=== PATIENT | female | born 1985 | race Caucasian/White ===

== ENCOUNTER → 2019-04-02 | Outpatient (CLI) | payer SELFPAY ==
[2019-04-02 08:58] LABS: Basophils # (A) 0.1 k/uL (0-0.2); Basophils % (A) 1 %; Eosinophils # (A) 0.3 k/uL (0-0.7); Eosinophils % (A) 2 %; HCT 41.5 % (34.0-46.0); HGB 14.1 gm/dL (11.4-16.0); Lymphocytes # (A) 2.9 k/uL (1.0-4.8); Lymphocytes % (A) 22 %; MCH 30.6 pg (25.0-35.0); MCHC 34.1 g/dL (31.0-37.0); MCV 89.9 fL (80.0-100.0); Mean Platelet Volume 5.7; Monocytes # (A) 0.6 k/uL (0-1.0); Monocytes % (A) 4 %; Neutrophils # (A) 9.4 k/uL (1.3-7.7); Neutrophils % (A) 70 %; Platelet Count 482 k/uL (150-450); RBC 4.61 m/uL (3.80-5.40); RDW 13.1 % (11.5-15.5); WBC 13.4 k/uL (3.8-10.6)
[2019-04-02 15:57] LABS: ALT 19 U/L (8-44); AST 18 U/L (13-35); African American GFR (CKD) 136.9 (60.0-200.0); Albumin/Globulin Ratio 2.32 (1.60-3.17); Alkaline Phosphatase 68 U/L (41-126); BUN/Creat Ratio 8.33 Ratio (12.00-20.00); Bilirubin, Conjugated <0.20 mg/dL (0.20-0.40); Calcium 9.3 mg/dL (8.7-10.3); Carbon Dioxide 20.6 mmol/L (21.6-31.8); Chloride 106 mmol/L (96-109); Chol/HDL Ratio 4.06; Cholesterol 199 mg/dL (0-200); Globulin 1.9 g/dL (1.6-3.3); Glucose 85 mg/dL (70-110); Rheumatoid Factor, Qnt 9 IU/mL (0-15); Sodium 138 mmol/L (135-145); Total Bilirubin 0.2 mg/dL (0.3-1.2); Total Protein 6.3 g/dL (6.2-8.2)
== END | disposition home or self-care (01) ==
LOC: LABWHC1 07:43
PROVIDERS: ATTEND Family Medicine
DX: Z00.00 Encounter for general adult medical examination without abnormal findings (principal); M25.50 Pain in unspecified joint; R20.2 Paresthesia of skin; R10.9 Unspecified abdominal pain
CPT/HCPCS: 36415; 80053; 80061; 82248; 84439; 84443; 85025; 86038; 86431

== ENCOUNTER 2019-07-18 14:56 | Emergency (ER) | payer OTHER ==
[2019-07-18 15:02] VITALS: TEMP 98.1
[2019-07-18] MEDS ORDERED: SODIUM CHLORIDE 0.9% 1,000 ML IV STA (15:14)
[2019-07-18] MEDS ORDERED: ACETAMINOPHEN TAB 500 MG TAB PO STA (15:14)
[2019-07-18] MEDS ORDERED: SODIUM CHLORIDE 0.9% 500 ML 500 ML IV STA (15:14)
--- NOTE | 2019-07-18 15:18 | ED ---
General Adult HPI - General Chief complaint: Fever Stated complaint: flu Time Seen by Provider: 07/18/19 15:05 Source: patient, RN notes reviewed Mode of arrival: ambulatory Limitations: no limitations - History of Present Illness Initial comments: 33-year-old to female currently 29 weeks presents to the emergency department for a chief complaint of cough and congestion. Patient states she has had cough for the past couple days. States she has also had congestion. States yesterday she started to have chills and body aches. States she felt like she had a fever. Patient states that she figured she should be evaluated for this. Patient states her friend was diagnosed with influenza a earlier this week. Patient just found out about this 4 weeks ago but did have an ultrasound confirming a viable intrauterine . She is denying any abdominal pain and pelvic pain or pressure, vaginal bleeding, or any complains related to this . Patient sees her [facility] in 3 days.Patient has no other complaints at this time including shortness of breath, chest pain, abdominal pain, nausea or vomiting, headache, or visual changes. - Related Data Previous Rx's Medication Instructions Recorded Acetaminophen with Codeine 1 tab PO Q4H PRN #15 tab 07/01/15 [Tylenol w/codeine #3] Ciprofloxacin HCl [Cipro] 500 mg PO Q12HR #20 tablet 07/01/15 Lidocaine Viscous [Xylocaine 5 ml PO TID PRN #100 ml 07/01/15 Viscous 2%] Acetaminophen [Tylenol] 500 mg PO Q4-6H PRN #20 tab 07/18/19 Oseltamivir [Tamiflu] 75 mg PO Q12HR #10 cap 07/18/19 Allergies Allergy/AdvReac Type Severity Reaction Status Date / Time cefaclor [From Ceclor] Allergy Unknown Verified 07/18/19 15:02 clindamycin Allergy Unknown Verified 07/18/19 15:02 erythromycin base Allergy Unknown Verified 07/18/19 15:02 penicillinase Allergy Unknown Verified 07/18/19 15:02 Penicillins Allergy Unknown Verified 07/18/19 15:02 Sulfa (Sulfonamide Allergy Unknown Verified 07/18/19 15:02 Antibiotics) Review of Systems ROS Statement: Those systems with pertinent positive or pertinent negative responses have been documented in the HPI. ROS Other: All systems not noted in ROS Statement are negative. Past Medical History Past Medical History: Fibromyalgia History of Any Multi-Drug Resistant Organisms: None Reported Past Surgical History: Tonsillectomy Additional Past Surgical History / Comment(s): D&C Past Psychological History: Anxiety, Depression, Panic Disorder Smoking Status: Current every day smoker Past Alcohol Use History: None Reported Past Drug Use History: None Reported General Exam Limitations: no limitations General appearance: alert, in no apparent distress Head exam: Present: atraumatic, normocephalic, normal inspection Eye exam: Present: normal appearance, PERRL, EOMI. Absent: scleral icterus, conjunctival injection, periorbital swelling ENT exam: Present: normal exam, mucous membranes moist Neck exam: Present: normal inspection, full ROM. Absent: tenderness, meningis mus, lymphadenopathy Respiratory exam: Present: normal lung sounds bilaterally. Absent: respiratory distress, wheezes, rales, rhonchi, stridor Cardiovascular Exam: Present: regular rate, normal rhythm, normal heart sounds. Absent: systolic murmur, diastolic murmur, rubs, gallop, clicks GI/Abdominal exam: Present: soft, normal bowel sounds. Absent: distended, tenderness, guarding, rebound, rigid Neurological exam: Present: alert Course Vital Signs 07/18/19 07/18/19 14:59 15:52 Temperature 98.1 F Pulse Rate 122 H Respiratory 18 20 Rate Blood Pressure 143/82 O2 Sat by Pulse 98 Oximetry Medical Decision Making - Medical Decision Making She initially presents with a heart rate of 122. Patient is 29 weeks . Patient has had fevers and cough for the past day. I did do some lab work on patient she has mild acidosis likely reactive. CMP generally unremarkable. There is mild evidence of dehydration she was given fluids. Influenza B was detected. Chest x-ray shows a correlate for bronchitis. heart tones performed by L&D nurse were 150 and normal. I discussed findings with patient. Discussed and explained influenza. Patient does agree to take Tamiflu as it is recommended by CDC. I did repeat her heart rate and it is around 110-112 while I am in the room. Heart rate is likely physiologic from as well as from influenza and possible fever.I discussed this case with attending Dr. Kirkpatrick who agrees with this assessment and treatment plan. - Lab Data Result diagrams: 07/18/19 15:37 07/18/19 15:37 Lab Results 07/18/19 07/18/1907/18/20 Range/Units 15:37 15:37 15:39 WBC 12.6 H (3.8-10.6) k/uL RBC 3.87 (3.80-5.40) m/uL Hgb 11.9 (11.4-16.0) gm/dL Hct 34.8 (34.0-46.0) % MCV 89.8 (80.0-100.0) fL MCH 30.7 (25.0-35.0) pg MCHC 34.2 (31.0-37.0) g/dL RDW 13.0 (11.5-15.5) % Plt Count 534 H (150-450) k/uL Neutrophils % 72 % Lymphocytes % 13 % Monocytes % 9 % Eosinophils % 1 % Basophils % 3 % Neutrophils # 9.1 H (1.3-7.7) k/uL Lymphocytes # 1.6 (1.0-4.8) k/uL Monocytes # 1.1 H (0-1.0) k/uL Eosinophils # 0.1 (0-0.7) k/uL Basophils # 0.3 H (0-0.2) k/uL Sodium 134 L (137-145) mmol/L Potassium 4.2 (3.5-5.1) mmol/L Chloride 108 H (98-107) mmol/L Carbon Dioxide 19 L (22-30) mmol/L Anion Gap 7 mmol/L BUN 7 (7-17) mg/dL Creatinine 0.59 (0.52-1.04) mg/dL Est GFR (CKD-EPI)AfAm >90 (>60 ml/min/1.73 sqM) Est GFR (CKD-EPI)NonAf >90 (>60 ml/min/1.73 sqM) Glucose 90 (74-99) mg/dL Calcium 9.0 (8.4-10.2) mg/dL Total Bilirubin 0.2 (0.2-1.3) mg/dL AST 22 (14-36) U/L ALT 13 (4-34) U/L Alkaline Phosphatase 116 (38-126) U/L Total Protein 6.4 (6.3-8.2) g/dL Albumin 3.6 (3.5-5.0) g/dL Urine Color Yellow Urine Appearance Cloudy H (Clear) Urine pH 6.5 (5.0-8.0) Ur Specific [place] 1.017 (1.001-1.035) Urine Protein Trace H (Negative) Urine Glucose (UA) Negative (Negative) Urine Ketones Negative (Negative) Urine Blood Negative (Negative) Urine Nitrite Negative (Negative) Urine Bilirubin Negative (Negative) Urine Urobilinogen <2.0 (<2.0) mg/dL Ur Leukocyte Esterase Negative (Negative) Urine RBC <1 (0-5) /hpf Urine WBC 2 (0-5) /hpf Ur Squamous Epith Cells 2 (0-4) /hpf Urine Bacteria Rare H (None) /hpf Hyaline Casts 1 (0-2) /lpf Urine Mucus Rare H (None) /hpf Urine Yeast (Budding) Occasional H (None) /hpf Influenza Type A RNA (Not Detectd) Influenza Type B (PCR) (Not Detectd) 07/18/19 Range/Units 15:47 WBC (3.8-10.6) k/uL RBC (3.80-5.40) m/uL Hgb (11.4-16.0) gm/dL Hct (34.0-46.0) % MCV (80.0-100.0) fL MCH (25.0-35.0) pg MCHC (31.0-37.0) g/dL RDW (11.5-15.5) % Plt Count (150-450) k/uL Neutrophils % % Lymphocytes % % Monocytes % % Eosinophils % % Basophils % % Neutrophils # (1.3-7.7) k/uL Lymphocytes # (1.0-4.8) k/uL Monocytes # (0-1.0) k/uL Eosinophils # (0-0.7) k/uL Basophils # (0-0.2) k/uL Sodium (137-145) mmol/L Potassium (3.5-5.1) mmol/L Chloride (98-107) mmol/L Carbon Dioxide (22-30) mmol/L Anion Gap mmol/L BUN (7-17) mg/dL Creatinine (0.52-1.04) mg/dL Est GFR (CKD-EPI)AfAm (>60 ml/min/1.73 sqM) Est GFR (CKD-EPI)NonAf (>60 ml/min/1.73 sqM) Glucose (74-99) mg/dL Calcium (8.4-10.2) mg/dL Total Bilirubin (0.2-1.3) mg/dL AST (14-36) U/L ALT (4-34) U/L Alkaline Phosphatase (38-126) U/L Total Protein (6.3-8.2) g/dL Albumin (3.5-5.0) g/dL Urine Color Urine Appearance (Clear) Urine pH (5.0-8.0) Ur Specific [place] (1.001-1.035) Urine Protein (Negative) Urine Glucose (UA) (Negative) Urine Ketones (Negative) Urine Blood (Negative) Urine Nitrite (Negative) Urine Bilirubin (Negative) Urine Urobilinogen (<2.0) mg/dL Ur Leukocyte Esterase (Negative) Urine RBC (0-5) /hpf Urine WBC (0-5) /hpf Ur Squamous Epith Cells (0-4) /hpf Urine Bacteria (None) /hpf Hyaline Casts (0-2) /lpf Urine Mucus (None) /hpf Urine Yeast (Budding) (None) /hpf Influenza Type A RNA Not Detected (Not Detectd) Influenza Type B (PCR) Detected H (Not Detectd) Disposition Clinical Impression: Influenza B Disposition: HOME SELF-CARE Condition: Good Instructions (If sedation given, give patient instructions): Influenza (ED) Additional Instructions: Please take Tylenol as directed. Take Tamiflu as directed. Start this as soon as possible. Follow up with primary care and OB in 1-2 days. Drink any fluids. Return to the emergency department if you have any worsening symptoms. Prescriptions: Oseltamivir [Tamiflu] 75 mg PO Q12HR #10 cap Acetaminophen [Tylenol] 500 mg PO Q4-6H PRN #20 tab PRN Reason: Pain Is patient prescribed a controlled substance at d/c from ED?: No Referrals: Red Rueda MD [Primary Care Provider] - 1-2 days Time of Disposition: 16:50
[2019-07-18 15:52] VITALS: RESP 20
--- NOTE | 2019-07-18 15:53 | XR ---
EXAMINATION TYPE: XR chest 2V DATE OF EXAM: 07/18/2019 COMPARISON: Prior chest x-ray 10/25/2010 HISTORY: Cough TECHNIQUE: Frontal and lateral views of the chest are obtained. FINDINGS: There is no focal air space opacity, pleural effusion, or pneumothorax seen. The cardiac silhouette size is within normal limits. The osseous structures are intact. There is bronchial wall thickening. IMPRESSION: Correlate for bronchitis.
[2019-07-18 16:11] LABS: Appearance,Urine Cloudy (Clear); Bacteria,Urine Rare /hpf; Bilirubin,Urine Negative (Negative); Blood,Urine Negative (Negative); Budding Yeast,Urine Occasional /hpf; Color,Urine Yellow; Glucose,Urine (UA) Negative (Negative); Hyaline Casts,Urine 1 /lpf (0-2); Ketones,Urine Negative (Negative); Leukocyte Esterase,Urine Negative (Negative); Mucus,Urine Rare /hpf; Nitrite,Urine Negative (Negative); PH, Urine 6.5 (5.0-8.0); Protein,Urine Trace (Negative); RBC,Urine <1 /hpf (0-5); Specific Gravity,Urine 1.017 (1.001-1.035); Squamous Epithelial Cell,Urine 2 /hpf (0-4); Urobilinogen,Urine <2.0 mg/dL (<2.0); WBC,Urine 2 /hpf (0-5)
[2019-07-18 16:14] LABS: Basophils # (A) 0.3 k/uL (0-0.2); Basophils % (A) 3 %; Eosinophils # (A) 0.1 k/uL (0-0.7); Eosinophils % (A) 1 %; HCT 34.8 % (34.0-46.0); HGB 11.9 gm/dL (11.4-16.0); Lymphocytes # (A) 1.6 k/uL (1.0-4.8); Lymphocytes % (A) 13 %; MCH 30.7 pg (25.0-35.0); MCHC 34.2 g/dL (31.0-37.0); MCV 89.8 fL (80.0-100.0); Mean Platelet Volume 7.5; Monocytes # (A) 1.1 k/uL (0-1.0); Monocytes % (A) 9 %; Neutrophils # (A) 9.1 k/uL (1.3-7.7); Neutrophils % (A) 72 %; Platelet Count 534 k/uL (150-450); RBC 3.87 m/uL (3.80-5.40); WBC 12.6 k/uL (3.8-10.6)
[2019-07-18 16:20] LABS: ALT 13 U/L (4-34); AST 22 U/L (14-36); African American GFR (CKD) >90 (>60 ml/min/1.73 sqM); Albumin 3.6 g/dL (3.5-5.0); Alkaline Phosphatase 116 U/L (38-126); Anion Gap 7 mmol/L; Blood Urea Nitrogen 7 mg/dL (7-17); Carbon Dioxide 19 mmol/L (22-30); Chloride 108 mmol/L (98-107); Glucose 90 mg/dL (74-99); Non-African American GFR(CKD) >90 (>60 ml/min/1.73 sqM); Potassium 4.2 mmol/L (3.5-5.1); Sodium 134 mmol/L (137-145); Total Bilirubin 0.2 mg/dL (0.2-1.3); Total Protein 6.4 g/dL (6.3-8.2)
[2019-07-18 17:19] VITALS: BP 137/87; PULSE 96
== END 2019-07-18 17:18 | disposition home or self-care (01) ==
LOC: EC 14:56
DX: O99.513 Diseases of the respiratory system complicating pregnancy, third trimester (principal); J10.1 Influenza due to other identified influenza virus with other respiratory manifestations; O99.89 Other specified diseases and conditions complicating pregnancy, childbirth and the puerperium; E87.2 Acidosis; E86.0 Dehydration; O99.333 Smoking (tobacco) complicating pregnancy, third trimester; Z3A.29 29 weeks gestation of pregnancy; F17.200 Nicotine dependence, unspecified, uncomplicated; Z88.0 Allergy status to penicillin; Z88.2 Allergy status to sulfonamides; Z88.1 Allergy status to other antibiotic agents
CPT/HCPCS: 36415; 71046; 80053; 81001; 85025; 87502; 96360; 99284

== ENCOUNTER 2019-08-01 21:00 | Emergency (ER) | payer OTHER ==
[2019-08-01 21:15] VITALS: BP 141/99; TEMP 98.4
[2019-08-01] MEDS ORDERED: AZITHROMYCIN 500 MG TAB PO STA (21:49)
--- NOTE | 2019-08-01 21:49 | ED ---
ENT HPI - General Chief complaint: ENT Stated complaint: Rt Side facial pain, dental pain Time Seen by Provider: 08/01/19 21:16 Source: patient Mode of arrival: ambulatory Limitations: no limitations - History of Present Illness Initial comments: Patient is a 33-year-old female presenting to emergency Department with complaints of right sided dental pain as well as right ear pain that started increasing today. Patient is 32 weeks . Patient states she does have a fracture of her right upper wisdom tooth that happened 2 weeks ago. She has not yet followed up with her dentist. Patient states for the past few days she has been noticing increase in pressure over right ear as well as into her right jaw. Patient states today the pain is typically worse coming from her right upper teeth. She feels like she may have an abscess starting. Patient has been taking Claritin for her ear pressure as well as Tylenol for the pain. She states she does feel like the Tylenol is helping but can't tell when it wears off. Patient denies fever, chills, nausea, vomiting, abdominal pain. She has no other complaints at this time. - Related Data Previous Rx's Medication Instructions Recorded Acetaminophen with Codeine 1 tab PO Q4H PRN #15 tab 07/01/15 [Tylenol w/codeine #3] Ciprofloxacin HCl [Cipro] 500 mg PO Q12HR #20 tablet 07/01/15 Lidocaine Viscous [Xylocaine 5 ml PO TID PRN #100 ml 07/01/15 Viscous 2%] Acetaminophen [Tylenol] 500 mg PO Q4-6H PRN #20 tab 07/18/19 Oseltamivir [Tamiflu] 75 mg PO Q12HR #10 cap 07/18/19 Azithromycin 250 mg PO DAILY 4 Days #4 tab 08/01/19 Allergies Allergy/AdvReac Type Severity Reaction Status Date / Time cefaclor [From Ceclor] Allergy Unknown Verified 08/01/19 21:15 clindamycin Allergy Unknown Verified 08/01/19 21:15 erythromycin base Allergy Unknown Verified 08/01/19 21:15 penicillinase Allergy Unknown Verified 08/01/19 21:15 Penicillins Allergy Unknown Verified 08/01/19 21:15 Sulfa (Sulfonamide Allergy Unknown Verified 08/01/19 21:15 Antibiotics) Review of Systems ROS Statement: Those systems with pertinent positive or pertinent negative responses have been documented in the HPI. ROS Other: All systems not noted in ROS Statement are negative. Past Medical History Past Medical History: Fibromyalgia History of Any Multi-Drug Resistant Organisms: None Reported Past Surgical History: Tonsillectomy Additional Past Surgical History / Comment(s): D&C Past Psychological History: Anxiety, Depression, Panic Disorder Smoking Status: Current every day smoker Past Alcohol Use History: None Reported Past Drug Use History: None Reported General Exam - General Exam Comments Initial Comments: GENERAL: Well-appearing, well-nourished and in no acute distress. HEAD: Atraumatic, normocephalic. EYES: Pupils equal round and reactive to light, extraocular movements intact, sclera anicteric, conjunctiva are normal. ENT: TMs normal, nares patent, oropharynx clear without exudates. Moist mucous membranes. Patient has dental fracture of the right upper side, very mild erythema surrounding the right upper gums, no abscess seen. No drainage seen. NECK: Normal range of motion, supple without lymphadenopathy or JVD. LUNGS: Breath sounds clear to auscultation bilaterally and equal. No wheezes rales or rhonchi. HEART: Regular rate and rhythm without murmurs, rubs or gallops. ABDOMEN: Soft, nontender, normoactive bowel sounds. No guarding, no rebound. No masses appreciated. : Deferred EXTREMITIES: Normal range of motion, no pitting or edema. No clubbing or cyanosis. SKIN: Warm, Dry, normal turgor, no rashes or lesions noted. Limitations: no limitations Course Vital Signs 08/01/19 08/01/19 21:12 21:56 Temperature 98.4 F Pulse Rate 114 H 96 Respiratory 18 20 Rate Blood Pressure 141/99 O2 Sat by Pulse 99 100 Oximetry Medical Decision Making - Medical Decision Making Patient is a 33-year-old female presenting with right-sided upper dental pain as well as right ear pressure and pain over the past 2 days. Patient is currently 32 weeks . Vital signs are stable, afebrile. On exam, there is no dental abscess seen, very mild erythema of the right upper gumline associated with a fracture of upper right tooth. TMs are normal bilateral. I discussed with patient that this could be related to the fracture of the tooth. Given her multiple antibiotic ALLERGIES as well as being I discussed that we should hold off antibiotic treatment until she is able to follow-up with her dentist. Patient was very concerned with this plan of care and is requsting an abx. Patient will be started on azithromycin and will be given first dose tonight. She will follow-up with dentist on Sunday who can further evaluate for a dental abscess. She is in agreement with this plan of care. She will continue with Tylenol as needed for discomfort. Return parameters were discussed with the patient and she verbalized understanding. Case discussed with Dr. Hubbard. Disposition Clinical Impression: Pain, dental, Fractured tooth, Right ear pain Disposition: HOME SELF-CARE Condition: Stable Instructions (If sedation given, give patient instructions): Toothache (ED) Additional Instructions: Please return to the Emergency Department if symptoms worsen or any other concerns. Follow-up with dentist Sunday as discussed. Take Tylenol for pain. Prescriptions: Azithromycin 250 mg PO DAILY 4 Days #4 tab Is patient prescribed a controlled substance at d/c from ED?: No Referrals: Red Rueda MD [Primary Care Provider] - 1-2 days
[2019-08-01 21:58] VITALS: PULSE 96; RESP 20
== END 2019-08-01 21:58 | disposition home or self-care (01) ==
LOC: EC 21:00
DX: O9A.213 Injury, poisoning and certain other consequences of external causes complicating pregnancy, third trimester (principal); S02.5XXA Fracture of tooth (traumatic), initial encounter for closed fracture; O99.89 Other specified diseases and conditions complicating pregnancy, childbirth and the puerperium; H92.01 Otalgia, right ear; O99.343 Other mental disorders complicating pregnancy, third trimester; F17.200 Nicotine dependence, unspecified, uncomplicated; Z3A.32 32 weeks gestation of pregnancy; Z88.0 Allergy status to penicillin; Z88.1 Allergy status to other antibiotic agents; Z88.2 Allergy status to sulfonamides
CPT/HCPCS: 99282

== ENCOUNTER → 2019-08-19 | Outpatient (CLI) | payer OTHER ==
--- NOTE | 2019-08-20 07:57 | US ---
EXAMINATION TYPE: US OB anatomy transabd DATE OF EXAM: 08/19/2019 COMPARISON: NONE HISTORY: Z34.80 Encounter for supervision of other normal p Smoker; TECHNIQUE: Transabdominal (TA) EXAM MEASUREMENTS: GESTATIONAL AGE / DATING Physician Established: (not yet established Dates by LMP: (35 weeks/4 days) EDC: 09/19/2019 Dates by First Scan: No previous Dates by Current Scan for: (35 weeks/1 day) EDC: 09/22/2019 SURVEY IUP: Single PLACENTA: Anterior PREVIA: No previa HERNAN: 16.6 cm Normal CERVICAL LENGTH (transabdominal: norm > 3.0cm): 4.7 cm BIOMETRY PRESENTATION: Breech LIE: Oblique, head is noted maternal right BPD: 8.7 cm 35 weeks / 2 days HC: 32.1 cm 36 weeks / 1 day AC: 31.0 cm 35 weeks / 0 days FL: 6.6 cm 34 weeks / 1 day ESTIMATED WEIGHT IN GRAMS: 2538.0 grams ESTIMATED WEIGHT IN LBS/OZ: 5 lbs. 10 oz. WEIGHT PERCENTAGE BASED ON ESTABLISHED DATE: 30.0 % HC/AC: 1.03 Normal FL/AC: 21.38 Normal HEART RATE: 155 bpm RHYTHM: Normal ANATOMY SEEN (within normal limits): Midline Falx Cavus Septi Pellucidi Stomach Diaphragm Kidneys (bilateral) Bladder Cord Insert Three Vessel Cord Longitudinal Spine Transverse Spine ANATOMY NOT SEEN: due to third trimester assessment, position, crowding * Lateral Vent (< 1 cm) cm * Cisterna Magna (< 1.1 cm) cm * Nuchal Fold (< 0.6 cm) cm * Cerebellum (varies with age) cm Choroid Plexus (bilateral) Four Chamber Heart Outflow tracts: LVOT/RVOT Situs Nose / Lips Arms (bilateral) Legs (bilateral) Single, live IUP,35 weeks/1 day), EDC: 09/22/2019, [id number]. IMPRESSION: Limited exam. A third trimester. Only portions of the normal anatomy scan were visualized as discussed above. A single live intrauterine with a sonographic age of 35 weeks and 1 da y and estimated date of delivery of 09/22/2019 is seen with heart rate of 155 bpm.
== END | disposition home or self-care (01) ==
LOC: RADUSWWP 15:50
PROVIDERS: ATTEND Obstetrics & Gynecology
DX: Z34.83 Encounter for supervision of other normal pregnancy, third trimester (principal)
CPT/HCPCS: 76811

== ENCOUNTER 2020-02-01 20:19 | Emergency (ER) | payer OTHER ==
[2020-02-01 20:28] VITALS: RESP 20
[2020-02-01 22:03] LABS: Basophils # (A) 0.2 k/uL (0-0.2); Basophils % (A) 1 %; Eosinophils # (A) 0.5 k/uL (0-0.7); Eosinophils % (A) 3 %; HGB 13.1 gm/dL (11.4-16.0); Lymphocytes # (A) 4.7 k/uL (1.0-4.8); Lymphocytes % (A) 36 %; MCH 27.1 pg (25.0-35.0); MCHC 32.8 g/dL (31.0-37.0); MCV 82.7 fL (80.0-100.0); Mean Platelet Volume 6.4; Monocytes # (A) 0.7 k/uL (0-1.0); Monocytes % (A) 5 %; Neutrophils # (A) 6.9 k/uL (1.3-7.7); Neutrophils % (A) 53 %; Platelet Count 556 k/uL (150-450); RBC 4.84 m/uL (3.80-5.40); RDW 14.3 % (11.5-15.5); WBC 13.2 k/uL (3.8-10.6)
[2020-02-01 22:07] LABS: Appearance,Urine Cloudy (Clear); Bacteria,Urine Occasional /hpf; Bilirubin,Urine Negative (Negative); Blood,Urine Negative (Negative); Color,Urine Light Yellow; Glucose,Urine (UA) Negative (Negative); Ketones,Urine Negative (Negative); Leukocyte Esterase,Urine Large (Negative); Nitrite,Urine Negative (Negative); PH, Urine 6.5 (5.0-8.0); Protein,Urine Negative (Negative); RBC,Urine 37 /hpf (0-5); Specific Gravity,Urine 1.005 (1.001-1.035); Squamous Epithelial Cell,Urine 10 /hpf (0-4); Urobilinogen,Urine <2.0 mg/dL (<2.0); WBC,Urine 67 /hpf (0-5)
[2020-02-01 22:14] LABS: ALT 39 U/L (4-34); AST 31 U/L (14-36); African American GFR (CKD) >90 (>60 ml/min/1.73 sqM); Albumin 4.4 g/dL (3.5-5.0); Alkaline Phosphatase 89 U/L (38-126); Anion Gap 10 mmol/L; Blood Urea Nitrogen 10 mg/dL (7-17); Calcium 10.1 mg/dL (8.4-10.2); Carbon Dioxide 22 mmol/L (22-30); Chloride 105 mmol/L (98-107); Glucose 92 mg/dL (74-99); Non-African American GFR(CKD) >90 (>60 ml/min/1.73 sqM); Potassium 4.7 mmol/L (3.5-5.1); Sodium 137 mmol/L (137-145); Total Bilirubin 0.3 mg/dL (0.2-1.3); Total Protein 7.2 g/dL (6.3-8.2)
[2020-02-01] MEDS ORDERED: NITROFURANTOIN MONOHYD/M-CRYST 100 MG CAP PO STA ×2 (22:53→23:02)
--- NOTE | 2020-02-01 22:55 | ED ---
General Adult HPI - General Chief complaint: Recheck/Abnormal Lab/Rx Stated complaint: High BP Time Seen by Provider: 02/01/20 20:33 Source: patient, RN notes reviewed, old records reviewed Mode of arrival: ambulatory Limitations: no limitations - History of Present Illness Initial comments: 34 old female patient with past history of gestational hypertension about 4 months ago when she gave presents ED for evaluation of hypertension. Patient reports that she was at work and she took her blood pressure followed the elevated about 170/110. She denies any headache chest pain or shortness of breath. She does report that she had a little bit of lightheadedness earlier in the day. Denies any other acute complaints. Systemic: Pt denies fatigue, fever/chills, rash. Pt denies weakness, night sweats, weight loss. Neuro: Pt denies headache, visual disturbances, syncope or pre-syncope. HEENT: Pt denies ocular discharge or irritation, otalgia, rhinorrhea, pharyngitis or notable lymphadenopathy. Cardiopulmonary: Pt denies chest pain, SOB, heart palpitations, dyspnea on exertion. Abdominal/GI: Pt denies abdominal pain, n/v/d. : Pt denies dysuria, burning w/ urination, frequency/urgency. Denies new onset urinary or bowel incontinence. MSK: Pt denies myalgia, loss of strength or function in extremities. Neuro: Pt denies new onset weakness, paresthesias. - Related Data Home Medications Medication Instructions Recorded Confirmed Omeprazole Magnesium [PriLOSEC OTC] 20 mg PO DAILY 02/01/20 02/01/20 medroxyPROGESTERone [Depo-Provera] 150 mg IM Q84D 02/01/20 02/01/20 Previous Rx's Medication Instructions Recorded Nitrofurantoin Monohyd/M-Cryst 100 mg PO Q12HR 5 Days #10 cap 02/01/20 [Macrobid] Allergies Allergy/AdvReac Type Severity Reaction Status Date / Time amoxicillin Allergy Rash/Hives Verified 02/01/20 22:31 cefaclor [From Ceclor] Allergy Rash/Hives Verified 02/01/20 22:31 clindamycin Allergy Nausea & Verified 02/01/20 22:31 Vomiting/Dizziness erythromycin base Allergy Nausea & Verified 02/01/20 22:31 Vomiting/Dizziness penicillinase Allergy Rash/Hives Verified 02/01/20 22:31 Penicillins Allergy Rash/Hives Verified 02/01/20 22:31 Sulfa (Sulfonamide Allergy Rash/Hives Verified 02/01/20 22:31 Antibiotics) Review of Systems ROS Statement: Those systems with pertinent positive or pertinent negative responses have been documented in the HPI. ROS Other: All systems not noted in ROS Statement are negative. Past Medical History Past Medical History: Fibromyalgia, Hypertension History of Any Multi-Drug Resistant Organisms: None Reported Past Surgical History: Tonsillectomy Additional Past Surgical History / Comment(s): D&C Past Psychological History: Anxiety, Depression, Panic Disorder Smoking Status: Current every day smoker Past Alcohol Use History: None Reported Past Drug Use History: None Reported General Exam - General Exam Comments Initial Comments: Constitutional: NAD, AOX3, Pt has pleasant affect. HEENT: NC/AT, trachea midline, neck supple, no lymphadenopathy. External ears appear normal, without discharge. Mucous membranes moist. Eyes PERRLA, EOM intact. There is no scleral icterus. No pallor noted. Cardiopulmonary: RRR, no murmurs, rubs or gallops, no JVD noted. Lungs CTAB in anterior and posterior benoit. No peripheral edema. Abdominal exam: Abdomen soft and non-distended. Abdomen non-tender to palpation in all 4 quadrants. Bowel sounds active in LLQ. No hepatosplenomegaly. No ecchymosis Neuro: CN II-XII intact. No nuchal rigidity. No raccon eyes, no bush sign, no hemotympanum. No cervical spinal tenderness. MSK: No posterior calf tenderness bilaterally, homans sign negative bilaterally. Posterior tibialis +2 bilaterally. Sensation intact in upper and lower extremities. Full active ROM in upper and lower extremities, 5/5 stregnth. Limitations: no limitations Course Vital Signs 02/01/20 20:25 Temperature 98.3 F Pulse Rate 113 H Respiratory 20 Rate Blood Pressure 159/111 O2 Sat by Pulse 99 Oximetry Medical Decision Making - Medical Decision Making 34-year-old female patient presents to ED for evaluation of elevated blood pressure. Patient vital signs display mild blood pressure elevation. Physical exam did not display acute pathology. Laboratory investigations do displayed mild leukocytosis and mild urinary tract infection. Patient will be treated with Macrobid. We'll follow up with primary care provider for blood pressure recheck and return here if condition worsens. Case discussed with Dr. Andrew. - Lab Data Result diagrams: 02/01/20 21:21 02/01/20 21:21 Lab Results 02/01/20 02/01/20 02/01/20 Range/Units 21:21 21:21 21:21 WBC 13.2 H (3.8-10.6) k/uL RBC 4.84 (3.80-5.40) m/uL Hgb 13.1 (11.4-16.0) gm/dL Hct 40.0 (34.0-46.0) % MCV 82.7 (80.0-100.0) fL MCH 27.1 (25.0-35.0) pg MCHC 32.8 (31.0-37.0) g/dL RDW 14.3 (11.5-15.5) % Plt Count 556 H (150-450) k/uL Neutrophils % 53 % Lymphocytes % 36 % Monocytes % 5 % Eosinophils % 3 % Basophils % 1 % Neutrophils # 6.9 (1.3-7.7) k/uL Lymphocytes # 4.7 (1.0-4.8) k/uL Monocytes # 0.7 (0-1.0) k/uL Eosinophils # 0.5 (0-0.7) k/uL Basophils # 0.2 (0-0.2) k/uL Sodium 137 (137-145) mmol/L Potassium 4.7 (3.5-5.1) mmol/L Chloride 105 (98-107) mmol/L Carbon Dioxide 22 (22-30) mmol/L Anion Gap 10 mmol/L BUN 10 (7-17) mg/dL Creatinine 0.75 (0.52-1.04) mg/dL Est GFR (CKD-EPI)AfAm >90 (>60 ml/min/1.73 sqM) Est GFR (CKD-EPI)NonAf >90 (>60 ml/min/1.73 sqM) Glucose 92 (74-99) mg/dL Calcium 10.1 (8.4-10.2) mg/dL Magnesium 2.0 (1.6-2.3) mg/dL Total Bilirubin 0.3 (0.2-1.3) mg/dL AST 31 (14-36) U/L ALT 39 H (4-34) U/L Alkaline Phosphatase 89 (38-126) U/L Troponin I <0.012 (0.000-0.034) ng/mL Total Protein 7.2 (6.3-8.2) g/dL Albumin 4.4 (3.5-5.0) g/dL Urine Color Urine Appearance (Clear) Urine pH (5.0-8.0) Ur Specific Albright (1.001-1.035) Urine Protein (Negative) Urine Glucose (UA) (Negative) Urine Ketones (Negative) Urine Blood (Negative) Urine Nitrite (Negative) Urine Bilirubin (Negative) Urine Urobilinogen (<2.0) mg/dL Ur Leukocyte Esterase (Negative) Urine RBC (0-5) /hpf Urine WBC (0-5) /hpf Ur Squamous Epith Cells (0-4) /hpf Urine Bacteria (None) /hpf Urine HCG, Qual (Not Detectd) 02/01/20 02/01/20 Range/Units 21:21 21:21 WBC (3.8-10.6) k/uL RBC (3.80-5.40) m/uL Hgb (11.4-16.0) gm/dL Hct (34.0-46.0) % MCV (80.0-100.0) fL MCH (25.0-35.0) pg MCHC (31.0-37.0) g/dL RDW (11.5-15.5) % Plt Count (150-450) k/uL Neutrophils % % Lymphocytes % % Monocytes % % Eosinophils % % Basophils % % Neutrophils # (1.3-7.7) k/uL Lymphocytes # (1.0-4.8) k/uL Monocytes # (0-1.0) k/uL Eosinophils # (0-0.7) k/uL Basophils # (0-0.2) k/uL Sodium (137-145) mmol/L Potassium (3.5-5.1) mmol/L Chloride (98-107) mmol/L Carbon Dioxide (22-30) mmol/L Anion Gap mmol/L BUN (7-17) mg/dL Creatinine (0.52-1.04) mg/dL Est GFR (CKD-EPI)AfAm (>60 ml/min/1.73 sqM) Est GFR (CKD-EPI)NonAf (>60 ml/min/1.73 sqM) Glucose (74-99) mg/dL Calcium (8.4-10.2) mg/dL Magnesium (1.6-2.3) mg/dL Total Bilirubin (0.2-1.3) mg/dL AST (14-36) U/L ALT (4-34) U/L Alkaline Phosphatase (38-126) U/L Troponin I (0.000-0.034) ng/mL Total Protein (6.3-8.2) g/dL Albumin (3.5-5.0) g/dL Urine Color Light Yellow Urine Appearance Cloudy H (Clear) Urine pH 6.5 (5.0-8.0) Ur Specific Albright 1.005 (1.001-1.035) Urine Protein Negative (Negative) Urine Glucose (UA) Negative (Negative) Urine Ketones Negative (Negative) Urine Blood Negative (Negative) Urine Nitrite Negative (Negative) Urine Bilirubin Negative (Negative) Urine Urobilinogen <2.0 (<2.0) mg/dL Ur Leukocyte Esterase Large H (Negative) Urine RBC 37 H (0-5) /hpf Urine WBC 67 H (0-5) /hpf Ur Squamous Epith Cells 10 H (0-4) /hpf Urine Bacteria Occasional H (None) /hpf Urine HCG, Qual Not Detected (Not Detectd) Disposition Clinical Impression: UTI (urinary tract infection), Hypertension Disposition: HOME SELF-CARE Condition: Stable Instructions (If sedation given, give patient instructions): Urinary Tract Infection in Women (DC), Hypertension (ED) Additional Instructions: Follow up with PCP tomorrow for blood pressure recheck. Take antibiotics as directed. Return to ER with any worsening symptoms. Prescriptions: Nitrofurantoin Monohyd/M-Cryst [Macrobid] 100 mg PO Q12HR 5 Days #10 cap Is patient prescribed a controlled substance at d/c from ED?: No Referrals: Red Rudea MD [Primary Care Provider] - 1-2 days
[2020-02-01] MEDS ORDERED: NITROFURANTOIN MONOHYD/M-CRYST 100 MG CAP PO ONE (23:15)
[2020-02-01 23:50] VITALS: BP 146/105; PULSE 100; TEMP 98.2
== END 2020-02-01 23:48 | disposition home or self-care (01) ==
LOC: EC 20:19
DX: N39.0 Urinary tract infection, site not specified (principal); I10 Essential (primary) hypertension; R42 Dizziness and giddiness; D72.829 Elevated white blood cell count, unspecified; F17.200 Nicotine dependence, unspecified, uncomplicated; Z79.3 Long term (current) use of hormonal contraceptives; Z88.0 Allergy status to penicillin; Z88.1 Allergy status to other antibiotic agents; Z88.2 Allergy status to sulfonamides
CPT/HCPCS: 36415; 80053; 81001; 81025; 83735; 84484; 85025; 87086; 93005; 99284

== ENCOUNTER → 2022-01-16 | Outpatient (CLI) | payer OTHER ==
--- NOTE | 2022-01-16 15:49 | US ---
EXAMINATION TYPE: US OB >= 14 wk fetus DATE OF EXAM: 01/16/2022 COMPARISON: None CLINICAL HISTORY: Z34.90 Encounter for supervision of normal . Hx 4 miscarriages, 2 s, 2 D and C. . Patient not scheduled for anatomy, patient did not believe she was having her a natomy scan today. Anatomy not performed, needs additional appt for this. TECHNIQUE: Transabdominal (TA) GESTATIONAL AGE / DATING Physician Established: (19 weeks/6 days) EDC: 06/06/2022 Dates by LMP: Unknown Dates by First Scan: This is first scan at this facility. Dates by Current Scan: (20 weeks/0 days) EDC: 06/05/2022 SURVEY IUP: Single PLACENTA: Anterior PREVIA: Low-lying to partial previa. HERNAN: 16.0 cm Normal CERVICAL LENGTH (transabdominal: norm > 3.0cm): 4.0 cm BIOMETRY PRESENTATION: LIE: Transverse with head maternal Right BPD: 4.56 cm 19 weeks / 6 days HC: 17.58 cm 20 weeks / 1 day AC: 14.86 cm 20 weeks / 1 day FL: 3.09 cm 19 weeks / 5 days ESTIMATED WEIGHT IN GRAMS: 319 grams ESTIMATED WEIGHT IN LBS/OZ: 0 lbs. 11 oz. WEIGHT PERCENTAGE BASED ON ESTABLISHED DATES: 47% HC/AC: 1.18 Normal FL/AC: 21% HEART RATE: 161 bpm RHYTHM: Normal IMPRESSION: 1. Single intrauterine gestation estimated at 20 weeks 0 days gestation based on current ultrasound m easurements. Cardiac activity and 60 bpm.
== END | disposition home or self-care (01) ==
LOC: RADUSWWP 12:22
PROVIDERS: ATTEND Obstetrics & Gynecology
DX: Z34.92 Encounter for supervision of normal pregnancy, unspecified, second trimester (principal); Z3A.20 20 weeks gestation of pregnancy
CPT/HCPCS: 76805

== ENCOUNTER → 2022-04-20 | Outpatient (CLI) | payer OTHER ==
--- NOTE | 2022-04-21 08:51 | US ---
EXAMINATION TYPE: US OB >= 14 wk fetus DATE OF EXAM: 04/20/2022 COMPARISON: 01/16/2022 CLINICAL HISTORY: O09.519 ELDERLY PRIMIVAGRADA TECHNIQUE: Transabdominal (TA) GESTATIONAL AGE / DATING Physician Established: (33 weeks/2 days) EDC: 06/06/2022 Dates by LMP: LMP unknown Dates by Current Scan: (33 weeks/0 days) EDC: 06/08/2022 SURVEY IUP: Single PLACENTA: Anterior PREVIA: No Previa HERNAN: 17.4 cm Normal CERVICAL LENGTH (transabdominal: norm > 3.0cm): 4.3 cm BIOMETRY PRESENTATION: Breech LIE: Oblique BPD: 8.3 cm 33 weeks / 3 days HC: 29.8 cm 33 weeks / 0 days AC: 30.0 cm 34 weeks / 0 days FL: 6.0 cm 31 weeks / 2 days ESTIMATED WEIGHT IN GRAMS: 2106 grams ESTIMATED WEIGHT IN LBS/OZ: 4 lbs. 10 oz. WEIGHT PERCENTAGE BASED ON ESTABLISHED DATES: 34% HC/AC: 0.99 Normal FL/AC: 20% Normal HEART RATE: 146 bpm RHYTHM: Normal IMPRESSION: Single viable intrauterine .
== END | disposition home or self-care (01) ==
LOC: RADUSWWP 14:59
PROVIDERS: ATTEND Obstetrics & Gynecology
DX: O09.513 Supervision of elderly primigravida, third trimester (principal); Z3A.33 33 weeks gestation of pregnancy
CPT/HCPCS: 76805

== ENCOUNTER 2022-05-08 11:50 | Outpatient (CLI) | payer OTHER ==
[2022-05-08 12:35] LABS: Appearance,Urine Clear (Clear); Bilirubin,Urine Negative (Negative); Blood,Urine Negative (Negative); Color,Urine Light Yellow; Glucose,Urine (UA) Negative (Negative); Ketones,Urine Negative (Negative); Leukocyte Esterase,Urine Negative (Negative); Nitrite,Urine Negative (Negative); Protein,Urine Negative (Negative); Specific Gravity,Urine 1.006 (1.001-1.035); Urobilinogen,Urine <2.0 mg/dL (<2.0)
[2022-05-08 12:54] LABS: Creatinine,Urine Random 34.5 mg/dL; Protein/Creatinine Ratio,Urine 0.522
[2022-05-08 12:56] LABS: Basophils # (A) 0.1 k/uL (0-0.2); Basophils % (A) 1 %; Eosinophils # (A) 0.4 k/uL (0-0.7); Eosinophils % (A) 3 %; HCT 32.3 % (34.0-46.0); HGB 10.9 gm/dL (11.4-16.0); Lymphocytes % (A) 19 %; MCHC 33.8 g/dL (31.0-37.0); MCV 88.7 fL (80.0-100.0); Mean Platelet Volume 7.5; Monocytes # (A) 0.9 k/uL (0-1.0); Monocytes % (A) 6 %; Neutrophils # (A) 11.2 k/uL (1.3-7.7); Neutrophils % (A) 71 %; Platelet Count 492 k/uL (150-450); RBC 3.64 m/uL (3.80-5.40); RDW 13.9 % (11.5-15.5); WBC 15.8 k/uL (3.8-10.6)
[2022-05-08 13:06] LABS: ALT 11 U/L (4-34); AST 15 U/L (14-36); African American GFR (CKD) >90 (>60 ml/min/1.73 sqM); Blood Urea Nitrogen 5 mg/dL (7-17); LDH 348 U/L (313-618); Non-African American GFR(CKD) >90 (>60 ml/min/1.73 sqM); Uric Acid 4.8 mg/dL (3.7-7.4)
[2022-05-08] MEDS ORDERED: LABETALOL 100 MG TAB PO ONE (13:19)
[2022-05-08 18:04] VITALS: BP 167/101; PULSE 112; RESP 14; TEMP 97.3
--- NOTE | 2022-05-31 19:38 | P.MSEPDOC ---
Presenting Problems - Arrival Data Date of Arrival on Unit: 05/08/22 Time of Arrival on Unit: 11:48 Mode of Transport: Ambulatory - Complaint OB-Reason for Admission/Chief Complaint: PIH Medical History - Information : 10 Para: 2 Term: 2 : 0 Abortions: Spontaneous or Elective: 7 Number of Living Children: 2 - Gestational Age Gestational Age by PRIMO (wks/days): 35 Weeks and 6 Days Review of Systems - Review of Systems Constitutional: No problems Breast: No problems ENT: No problems Cardiovascular: No problems Respiratory: No problems Gastrointestinal: No problems Genitourinary: No problems Musculoskeletal: No problems Neurological: No problems Skin: No problems Vital Signs - Temperature Temperature: 97.3 F Temperature Source: Temporal Artery Scan - Pulse Right Brachial Pulse Rate: 112 Pulse Assessment Method: Automatic Cuff - Respirations Respiratory Rate: 14 Oxygen Delivery Method: Room Air - Blood Pressure Right Arm Blood Pressure: 167/101 Blood Pressure Mean: 123 Blood Pressure Source: Automatic Cuff Medical Screen Scoring - Cervical Exam Dilation (cm): 0 Effacement (%): 50 Station: -2 Membranes: Intact - Assessment - Baby A Baseline FHR: 135 Heart Rate - NICHD Category: Category I (Normal) NST: Reactive Physician Notification - Physician Notified Physician Notified Date: 05/08/22 Physician Notified Time: 12:02 Physician: Lucy Minaya New Order Received: Yes - Notification Comment Comment: medicate/observe for a few hours. Maternal Triage Index - Maternal Triage Index Presenting for scheduled procedure w/no complaint: No - Stat/Priority 1 Stat Priority 1: Yes Provider Notified: Lucy Minaya Provider Notified Time: 12:02 Criteria Met for Priority 1: B/P 167/101 Disposition - Disposition OB Disposition: Discharge to home Discharge Date: 05/08/22 Discharge Time: 15:00 I agree with the RN Medical Screening Exam: No Case reviewed; plan agreed upon as documented in EMR&OBIX.: No Comments: Patient not seen or examined by myself, and incomplete documentation Diagnosis: RELATED CONDITIONS, UNSPECIFIED, THIRD TRIMESTER
== END 2022-05-08 15:00 | disposition home or self-care (01) ==
LOC: FBPOP 11:50
PROVIDERS: ATTEND Obstetrics & Gynecology Obstetrics
DX: O26.893 Other specified pregnancy related conditions, third trimester (principal); Z3A.35 35 weeks gestation of pregnancy; O13.3 Gestational [pregnancy-induced] hypertension without significant proteinuria, third trimester; Z88.1 Allergy status to other antibiotic agents; Z88.0 Allergy status to penicillin; Z88.2 Allergy status to sulfonamides; F17.200 Nicotine dependence, unspecified, uncomplicated
CPT/HCPCS: 59025; 82570; 84156; 82565; 83615; 84450; 84460; 84520; 84550; 85025; 81003; G0463; 99215

== ENCOUNTER 2024-06-23 00:03 | Observation (INO) | payer OTHER ==
[2024-06-23] MEDS ORDERED: MAGNESIUM HYDROXIDE 2,400 MG/30 ML CUP PO PRN (00:22)
[2024-06-23] MEDS ORDERED: ACETAMINOPHEN TAB 325 MG TAB PO PRN (00:26)
[2024-06-23] MEDS ORDERED: NALOXONE 0.4 MG/ML 1 ML VIAL IV PRN (00:26)
--- NOTE | 2024-06-23 00:32 | ED ---
General Adult HPI - General Chief complaint: Headache Stated complaint: Hypertension- 4 days pp Time Seen by Provider: 06/23/24 00:14 Source: patient Mode of arrival: ambulatory Limitations: no limitations - History of Present Illness Initial comments: Patient is a 38-year-old female, 4 days , history of preeclampsia presenting today for high blood pressure. Patient states that she delivered via without complications at [facility] 4 days ago. During her admission she was diagnosed with preeclampsia and discharged home with 600 mg labetalol 3 times daily. Patient had a mild headache this evening before coming in, checked her blood pressure and BP was 174 systolic. She took her scheduled dose of labetalol, afterwards rechecked her blood pressure with systolic blood pressure 154 and came to the emergency department for further assessment because "she didn't want to have a stroke". 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 States she has had intermittent mild LE swelling that she is unsure how long has been going on for however has been ongoing since prior to today's visit. She denies any chest pain or shortness of breath, abdominal pain, changes in vision, slurred speech, headache, numbness or weakness. - Related Data Home Medications Medication Instructions Recorded Confirmed Vit No.179/Iron/Folic 1 each PO DAILY 05/08/22 06/23/24 [ Tablet] Acetaminophen Tab [Tylenol Tab] 1,000 mg PO Q6HR 06/23/24 06/23/24 Docusate [Colace] 100 mg PO DAILY 06/23/24 06/23/24 Ibuprofen 600 mg PO Q6H 06/23/24 06/23/24 Labetalol [Trandate] 600 mg PO TID 06/23/24 06/23/24 methocarbamoL [Robaxin] 1,000 mg PO QID 06/23/24 06/23/24 oxyCODONE HCL [OxyIR] 5 mg PO Q4H PRN 06/23/24 06/23/24 Previous Rx's Medication Instructions Recorded NIFEdipine XL [Procardia Xl] 30 mg PO BID #60 tab 06/24/24 Allergies Allergy/AdvReac Type Severity Reaction Status Date / Time amoxicillin Allergy Rash/Hives Verified 06/23/24 02:11 cefaclor [From Ceclor] Allergy Rash/Hives Verified 06/23/24 02:11 clindamycin Allergy Nausea & Verified 06/23/24 02:11 Vomiting/Dizziness erythromycin base Allergy Nausea & Verified 06/23/24 02:11 Vomiting/Dizziness penicillinase Allergy Rash/Hives Verified 06/23/24 02:11 Penicillins Allergy Rash/Hives Verified 06/23/24 02:11 Sulfa (Sulfonamide Allergy Rash/Hives Verified 06/23/24 02:11 Antibiotics) Review of Systems ROS Statement: Those systems with pertinent positive or pertinent negative responses have been documented in the HPI. ROS Other: All systems not noted in ROS Statement are negative. Past Medical History Past Medical History: Fibromyalgia, Hypertension History of Any Multi-Drug Resistant Organisms: None Reported Past Surgical History: Section, Tonsillectomy Additional Past Surgical History / Comment(s): D&C, 06/18/24 Past Psychological History: Anxiety, Depression, Panic Disorder Smoking Status: Current every day smoker Past Alcohol Use History: None Reported Past Drug Use History: Marijuana - Past Family History Mother Family Medical History: Cancer Additional Family Medical History / Comment(s): leukemia Father Family Medical History: Cancer Additional Family Medical History / Comment(s): esophogeal Brother(s) Family Medical History: Hypertension General Exam - General Exam Comments Initial Comments: PE: CONSTITUTIONAL: [no apparent distress, well appearing] SKIN: [warm, dry, no jaundice, hives or petechiae] EYES:[ pupils are equally round, extraocular movements intact without nystagmus, clear conjunctiva, non-icteric sclera] HENT: [normocephalic, atraumatic, moist mucus membranes, oropharynx clear without exudates] NECK: , [Full range of motion, normal appearance] PULMONARY: [clear to auscultation without wheezes, rhonchi, or rales, normal excursion, no accessory muscle use and no stridor] CARDIOVASCULAR:[ regular rate, rhythm, normal S1 and S2. No appreciated murmurs, rubs or gallops. Strong radial pulses with intact distal perfusion. Bilateral 1+ distal lower extremity nonpitting edema] GASTROINTESTINAL: [soft, active bowel sounds throughout, non-tender, drain in place with overlying abdominal binder over C cestion site, no palpable masses, no rebound or guarding. No hepatosplenomegaly] GENITOURINARY: MUSCULOSKELETAL: [Extremities have no gross deformity, no edema, redness, or swelling. No calf swelling ] NEUROLOGIC: [_a/o x 3, GCS 15, normal mentation and speech. Moves all extremities x 4 without motor or sensory deficit, no focal neurologic deficts ] PSYCHIATRIC:[ _normal mood and affect, thought process is clear and linear] Limitations: no limitations Course Vital Signs 06/23/24 06/23/24 06/23/24 00:05 00:29 00:39 Temperature 97.5 F L Pulse Rate 93 89 81 Respiratory 22 16 Rate Blood Pressure 180/100 173/103 157/96 O2 Sat by Pulse 97 98 Oximetry 06/23/24 06/23/24 01:06 01:12 Temperature Pulse Rate 72 74 Respiratory 16 Rate Blood Pressure 132/89 133/79 O2 Sat by Pulse 97 Oximetry Medical Decision Making - Medical Decision Making Was pt. sent in by a medical professional or institution (Dr. PA, COACH MECHANIC, urgent care, hospital, or [facility]...) When possible be specific @ -No Did you speak to anyone other than the patient for history (EMS, parent, family, police, friend...)? What history was obtained from this source @ -No Did you review nursing and triage notes (agree or disagree)? Why? @ -I reviewed nursing and triage notes Were old charts reviewed (outside hosp., previous admission, EMS record, old EKG, old radiological studies, urgent care reports/EKG's, ch[facility] records)? Report findings @ -Medical records reviewed Differential Diagnosis (chest pain, altered mental status, abdominal pain women, abdominal pain men, vaginal bleeding, weakness, fever, dyspnea, syncope, headache, dizziness, GI bleed, back pain, seizure, CVA, palpatations, mental health, musculoskeletal)? Differential diagnosis remains broad however top considerations include pre- eclamspia, uncontrolled hypertension, hypertensve urgency , hypertensive emergency, equiptment misread/ malfunction, this is not an all inclusive list EKG interpreted by me (3pts min.). @ -As above X-rays interpreted by me (1pt min.). @ -None done CT interpreted by me (1pt min.). @ -None done U/S interpreted by me (1pt. min.). @ -None done What testing was considered but not performed or refused? (CT, X-rays, U/S, labs)? Why? @ -None What meds were considered but not given or refused? Why? @ -None Did you discuss the management of the patient with other professionals (professionals i.e. , PA, COACH MECHANIC, lab, RT, psych nurse, executive secretary social welfare, photographic enlarger operator, teacher, landing signal officer, manager of case management)? Give summary Cause discussed with Dr. Joe who kindly rec'd labetolol, IV mag load and mag infusion, pre-eclampsia labs and admission to OB floor for closer monitoring Was smoking cessation discussed for >3mins.? @ -No Was critical care preformed (if so, how long)? @ -Yes 35 minutes Were there social determinants of health that impacted care today? How? (Homelessness, low income, unemployed, alcoholism, drug addiction, transportation, low edu. Level, literacy, decrease access to med. care, nursing home, rehab)? @ -No Was there de-escalation of care discussed even if they declined (Discuss DNR or withdrawal of care, Hospice)? @ -No What co-morbidities impacted this encounter? (DM, HTN, Smoking, COPD, CAD, Cancer, CVA, ARF, Chemo, Hep., AIDS, mental health diagnosis, sleep apnea, morbid obesity)? pre-eclampsia Was patient admitted / discharged? Hospital course, mention meds given and route, prescriptions, significant lab abnormalities, going to OR and other pertinent info. @ -Admission-patient is a 38-year-old female presenting today for high blood pressure. Of note patient's chief complaint on the emergency department board did note headache however patient denies headache or additional complaints at this time. Blood pressure on arrival 180/100. On my recheck without intervention was 174/103. Discussed with patient plan for labetalol, IV, labs and will discuss with OB out of concern for preeclampsia. Patient agreeable w/ plan of care. Case discussed with Dr. Joe, kindly recs labetolol, IV mag and mag protocol for pre-eclampsia and admission to her service. Updated pt to plan for admission, she is agreeable with plan. 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 Repeat BP 157/96. Of note patient's labs shortly after admission showed mild leukocytosis white blood cell count 14.5, no thrombocytopenia, LFTs within normal limits, GFR and creatinine within normal limits, uric acid 6.5, urinalysis does not show proteins in the urine. Pt transferred to in stable condition. Undiagnosed new problem with uncertain prognosis? @ -No Drug Therapy requiring intensive monitoring for toxicity (Heparin, Nitro, Insulin, Cardizem)? @ -No Were any procedures done? @ -No Diagnosis/symptom? @ Preeclampsia Acute, or Chronic, or Acute on Chronic? acute Uncomplicated (without systemic symptoms) or Complicated (systemic symptoms)? complicated Side effects of treatment? @ -No Exacerbation, Progression, or Severe Exacerbation? @ -No Poses a threat to life or bodily function? How? (Chest pain, USA, ID, pneumonia, PE, COPD, DKA, ARF, appy, cholecystitis, CVA, Diverticulitis, Homicidal, Suicidal, threat to staff... and all critical care pts) Yes - Lab Data Result diagrams: 06/23/24 00:25 06/23/24 00:25 Lab Results 06/23/24 06/23/24 06/23/24 Range/Units 00:25 00:25 00:25 WBC 14.5 H (3.8-10.6) k/uL RBC 3.52 L (3.80-5.40) m/uL Hgb 10.6 L (11.4-16.0) gm/dL Hct 32.0 L (34.0-46.0) % MCV 90.7 (80.0-100.0) fL MCH 30.1 (25.0-35.0) pg MCHC 33.1 (31.0-37.0) g/dL RDW 14.2 (11.5-15.5) % Plt Count 643 H (150-450) k/uL MPV 6.5 Neutrophils % 64 % Lymphocytes % 27 % Monocytes % 5 % Eosinophils % 3 % Basophils % 1 % Neutrophils # 9.2 H (1.3-7.7) k/uL Lymphocytes # 3.9 (1.0-4.8) k/uL Monocytes # 0.7 (0-1.0) k/uL Eosinophils # 0.4 (0-0.7) k/uL Basophils # 0.1 (0-0.2) k/uL PT 10.0 (10.0-12.5) sec INR 0.9 (<1.2) Sodium 135 L (137-145) mmol/L Potassium 4.2 (3.5-5.1) mmol/L Chloride 105 (98-107) mmol/L Carbon Dioxide 19 L (22-30) mmol/L Anion Gap 11 mmol/L BUN 15 (7-17) mg/dL Creatinine 0.74 (0.52-1.04) mg/dL Est GFR (CKD-EPI)AfAm >90 (>60 ml/min/1.73 sqM) Est GFR (CKD-EPI)NonAf >90 (>60 ml/min/1.73 sqM) Glucose 88 (74-99) mg/dL Uric Acid 6.5 (3.7-7.4) mg/dL Calcium 9.5 (8.4-10.2) mg/dL Total Bilirubin 0.3 (0.2-1.3) mg/dL AST 29 (14-36) U/L ALT 19 (4-34) U/L Alkaline Phosphatase 117 (38-126) U/L Lactate Dehydrogenase 186 (120-246) U/L Total Protein 6.9 (6.3-8.2) g/dL Albumin 3.9 (3.5-5.0) g/dL Urine Color Urine Appearance (Clear) Urine pH (5.0-8.0) Ur Specific [place] (1.001-1.035) Urine Protein (Negative) Urine Glucose (UA) (Negative) Urine Ketones (Negative) Urine Blood (Negative) Urine Nitrite (Negative) Urine Bilirubin (Negative) Urine Urobilinogen (<2.0) mg/dL Ur Leukocyte Esterase (Negative) Urine RBC (0-5) /hpf Ur Squamous Epith Cells (0-4) /hpf Urine Mucus (None) /hpf 06/23/24 Range/Units 00:25 WBC (3.8-10.6) k/uL RBC (3.80-5.40) m/uL Hgb (11.4-16.0) gm/dL Hct (34.0-46.0) % MCV (80.0-100.0) fL MCH (25.0-35.0) pg MCHC (31.0-37.0) g/dL RDW (11.5-15.5) % Plt Count (150-450) k/uL MPV Neutrophils % % Lymphocytes % % Monocytes % % Eosinophils % % Basophils % % Neutrophils # (1.3-7.7) k/uL Lymphocytes # (1.0-4.8) k/uL Monocytes # (0-1.0) k/uL Eosinophils # (0-0.7) k/uL Basophils # (0-0.2) k/uL PT (10.0-12.5) sec INR (<1.2) Sodium (137-145) mmol/L Potassium (3.5-5.1) mmol/L Chloride (98-107) mmol/L Carbon Dioxide (22-30) mmol/L Anion Gap mmol/L BUN (7-17) mg/dL Creatinine (0.52-1.04) mg/dL Est GFR (CKD-EPI)AfAm (>60 ml/min/1.73 sqM) Est GFR (CKD-EPI)NonAf (>60 ml/min/1.73 sqM) Glucose (74-99) mg/dL Uric Acid (3.7-7.4) mg/dL Calcium (8.4-10.2) mg/dL Total Bilirubin (0.2-1.3) mg/dL AST (14-36) U/L ALT (4-34) U/L Alkaline Phosphatase (38-126) U/L Lactate Dehydrogenase (120-246) U/L Total Protein (6.3-8.2) g/dL Albumin (3.5-5.0) g/dL Urine Color Colorless Urine Appearance Clear (Clear) Urine pH 5.5 (5.0-8.0) Ur Specific [place] 1.006 (1.001-1.035) Urine Protein Negative (Negative) Urine Glucose (UA) Negative (Negative) Urine Ketones Negative (Negative) Urine Blood Small H (Negative) Urine Nitrite Negative (Negative) Urine Bilirubin Negative (Negative) Urine Urobilinogen <2.0 (<2.0) mg/dL Ur Leukocyte Esterase Negative (Negative) Urine RBC <1 (0-5) /hpf Ur Squamous Epith Cells 2 (0-4) /hpf Urine Mucus Rare H (None) /hpf Disposition Clinical Impression: Pre-eclampsia Disposition: ADMITTED IP TO THIS [facility] Condition: Good
[2024-06-23 00:37] LABS: Basophils # (A) 0.1 k/uL (0-0.2); Basophils % (A) 1 %; Eosinophils # (A) 0.4 k/uL (0-0.7); Eosinophils % (A) 3 %; HGB 10.6 gm/dL (11.4-16.0); Lymphocytes # (A) 3.9 k/uL (1.0-4.8); Lymphocytes % (A) 27 %; MCH 30.1 pg (25.0-35.0); MCHC 33.1 g/dL (31.0-37.0); MCV 90.7 fL (80.0-100.0); Mean Platelet Volume 6.5; Monocytes # (A) 0.7 k/uL (0-1.0); Monocytes % (A) 5 %; Neutrophils # (A) 9.2 k/uL (1.3-7.7); Neutrophils % (A) 64 %; Platelet Count 643 k/uL (150-450); RBC 3.52 m/uL (3.80-5.40); RDW 14.2 % (11.5-15.5); WBC 14.5 k/uL (3.8-10.6)
[2024-06-23 00:38] LABS: Appearance,Urine Clear (Clear); Bilirubin,Urine Negative (Negative); Blood,Urine Small (Negative); Color,Urine Colorless; Glucose,Urine (UA) Negative (Negative); Ketones,Urine Negative (Negative); Leukocyte Esterase,Urine Negative (Negative); Mucus,Urine Rare /hpf; Nitrite,Urine Negative (Negative); PH, Urine 5.5 (5.0-8.0); Protein,Urine Negative (Negative); RBC,Urine <1 /hpf (0-5); Specific Gravity,Urine 1.006 (1.001-1.035); Squamous Epithelial Cell,Urine 2 /hpf (0-4); Urobilinogen,Urine <2.0 mg/dL (<2.0)
[2024-06-23] MEDS: LABETALOL SYRINGE 5 MG/ML (4 ML SYR) IVP STA (00:41)
[2024-06-23] MEDS: SODIUM CHLORIDE 0.9% 500 ML 500 ML IV STA (00:43)
[2024-06-23 00:49] LABS: INR 0.9 (<1.2)
[2024-06-23 00:50] LABS: ALT 19 U/L (4-34); AST 29 U/L (14-36); African American GFR (CKD) >90 (>60 ml/min/1.73 sqM); Albumin 3.9 g/dL (3.5-5.0); Alkaline Phosphatase 117 U/L (38-126); Anion Gap 11 mmol/L; Blood Urea Nitrogen 15 mg/dL (7-17); Calcium 9.5 mg/dL (8.4-10.2); Carbon Dioxide 19 mmol/L (22-30); Chloride 105 mmol/L (98-107); Glucose 88 mg/dL (74-99); LDH 186 U/L (120-246); Non-African American GFR(CKD) >90 (>60 ml/min/1.73 sqM); Potassium 4.2 mmol/L (3.5-5.1); Sodium 135 mmol/L (137-145); Total Bilirubin 0.3 mg/dL (0.2-1.3); Total Protein 6.9 g/dL (6.3-8.2); Uric Acid 6.5 mg/dL (3.7-7.4)
[2024-06-23] MEDS: MAGNESIUM SULFATE-WATER PMX 4 GM in WATER FOR INJECTION 1 100ML.BAG IVPB STA (00:59)
[2024-06-23] MEDS: LACTATED RINGERS 500 ML IV SCH ×3 (01:40→10:19)
[2024-06-23] MEDS: MAGNESIUM SULFATE-WATER PMX 20 GM in WATER FOR INJECTION 1 500ML.BAG IV SCH (01:51)
[2024-06-23] MEDS ORDERED: methocarbamoL 500 MG TAB PO PRN (02:21)
[2024-06-23] MEDS: IBUPROFEN 800 MG TAB PO PRN (02:39)
[2024-06-23] MEDS: LACTATED RINGERS 1,000 ML IV SCH (03:26)
[2024-06-23] MEDS: ACETAMINOPHEN TAB 500 MG TAB PO PRN (06:20)
[2024-06-23] MEDS: LABETALOL 200 MG TAB PO SCH (08:37)
[2024-06-23] MEDS: SENNOSIDES-DOCUSATE SODIUM 1 EACH TAB PO SCH (08:41)
[2024-06-23] MEDS ORDERED: NIFEdipine 10 MG CAP PO SCH (09:00)
--- NOTE | 2024-06-23 09:04 | P.HPOB ---
History of Present Illness H&P Date: 06/23/24 Chief Complaint: Elevated blood pressures Ms. Martinez is a 38 year old now POD#4 s/p primary section at 37 weeks for pre-eclampsia and transverse presentation. She had an uncomplicated and was discharged home with negative pressure wound therapy. She presented to the ER last night having had severe-range blood pressures at home. She was also noted to have severe range blood pressures in the ER, as well. She was started on Magnesium Sulfate for seizure prophylaxis and given one dose of IV Labetalol 20 mg in addition to the 600mg TID she takes PO. She feels well this morning aside from some congestion, she denies headache, visual distrubances, or RUQ. Obstetric history: 4 FTVD, 1 FTCS, 7 SABs Surgical history: 2 D&Cs, tonsillectomy Social history: tobacco use Past Medical History Past Medical History: Fibromyalgia, Hypertension Additional Past Medical History / Comment(s): pree with this past History of Any Multi-Drug Resistant Organisms: None Reported Past Surgical History: Section, Tonsillectomy Additional Past Surgical History / Comment(s): D&C, 06/18/24 Past Anesthesia/Blood Transfusion Reactions: No Reported Reaction Past Psychological History: Anxiety, Depression, Panic Disorder Smoking Status: Current every day smoker Past Alcohol Use History: None Reported Past Drug Use History: Marijuana - Past Family History Mother Family Medical History: Cancer Additional Family Medical History / Comment(s): leukemia Father Family Medical History: Cancer Additional Family Medical History / Comment(s): esophogeal Brother(s) Family Medical History: Hypertension Medications and Allergies Home Medications Medication Instructions Recorded Confirmed Type Vit No.179/Iron/Folic 1 each PO DAILY 05/08/22 06/23/24 History [ Tablet] Acetaminophen Tab [Tylenol Tab] 1,000 mg PO Q6HR 06/23/24 06/23/24 History Docusate [Colace] 100 mg PO DAILY 06/23/24 06/23/24 History Ibuprofen 600 mg PO Q6H 06/23/24 06/23/24 History Labetalol [Trandate] 600 mg PO TID 06/23/24 06/23/24 History methocarbamoL [Robaxin] 1,000 mg PO QID 06/23/24 06/23/24 History oxyCODONE HCL [OxyIR] 5 mg PO Q4H PRN 06/23/24 06/23/24 History Allergies Allergy/AdvReac Type Severity Reaction Status Date / Time amoxicillin Allergy Rash/Hives Verified 06/23/24 02:11 cefaclor [From Ceclor] Allergy Rash/Hives Verified 06/23/24 02:11 clindamycin Allergy Nausea & Verified 06/23/24 02:11 Vomiting/Dizziness erythromycin base Allergy Nausea & Verified 06/23/24 02:11 Vomiting/Dizziness penicillinase Allergy Rash/Hives Verified 06/23/24 02:11 Penicillins Allergy Rash/Hives Verified 06/23/24 02:11 Sulfa (Sulfonamide Allergy Rash/Hives Verified 06/23/24 02:11 Antibiotics) Exam Vital Signs Temp Pulse Pulse Resp BP BP Pulse Ox 06/23/24 08:00 96.6 F L 76 18 157/83 06/23/24 07:05 150/80 06/23/24 06:10 98.1 F 75 20 144/81 06/23/24 05:00 67 18 146/70 06/23/24 03:58 79 20 139/78 06/23/24 02:55 75 20 148/82 06/23/24 02:40 74 18 154/86 06/23/24 02:29 20 06/23/24 02:25 75 18 147/83 06/23/24 02:10 72 156/82 06/23/24 01:55 71 20 147/86 06/23/24 01:40 97.7 F 71 20 153/84 97 06/23/24 01:12 74 16 133/79 97 06/23/24 01:06 72 132/89 06/23/24 00:39 81 157/96 98 06/23/24 00:29 89 16 173/103 06/23/24 00:05 97.5 F L 93 22 180/100 97 Intake and Output 06/22/24 06/23/24 06/23/24 22:59 06:59 14:59 Output Total 1100 400 Balance -1100 -400 Output: Urine 1100 400 Other: # Voids 1 Weight 107.7 kg Focused physical exam is performed. This is a healthy-appearing womanin no apparent distress. Breathing is non-labored. Abdomen is non-tender. Extremities non-tender and with +1 pitting edema. Results Result Diagrams: 06/23/24 00:25 06/23/24 00:25 Abnormal Lab Results - Last 24 Hours (Table) 06/23/24 06/23/24 06/23/24 Range/Units 00:25 00:25 00:25 WBC 14.5 H (3.8-10.6) k/uL RBC 3.52 L (3.80-5.40) m/uL Hgb 10.6 L (11.4-16.0) gm/dL Hct 32.0 L (34.0-46.0) % Plt Count 643 H (150-450) k/uL Neutrophils # 9.2 H (1.3-7.7) k/uL Sodium 135 L (137-145) mmol/L Carbon Dioxide 19 L (22-30) mmol/L Urine Blood Small H (Negative) Urine Mucus Rare H (None) /hpf Assessment and Plan Assessment: 38 year old POD#4 s/p primary at 37 weeks for pre-eclampsia and transverse presentation, presents with pre-eclampsia with severe features Plan: 1. Pre-eclampsia with severe features. Continue Labetalol 600mg TID. Add Procardia XL 30mg daily. 24 hours of Mag Sulfate for seizure ppx. 2. Congestion. Mucinex and flonase. Dispo: 24 hours of Mag Sulfate. Monitor BPs.
[2024-06-23] MEDS: NIFEdipine XL 30 MG TAB.ER.24 PO SCH (09:24)
[2024-06-23] MEDS: PRENATAL VIT-IRON-FOLIC ACID 1 EACH TABLET PO SCH (09:48)
[2024-06-23] MEDS: FLUTICASONE NASAL 50MCG/SPRAY 16GM BTL EA NOSTRIL PRN (09:49)
[2024-06-23] MEDS: guaiFENesin-DM 600/30MG 1 EACH TAB.ER.12H PO PRN (09:49)
--- NOTE | 2024-06-24 08:33 | P.DS ---
Providers Date of admission: 06/23/24 00:29 Expected date of discharge: 06/24/24 Attending physician: Tanya Wills MD Primary care physician: Stated None Hospital Course: Ms. Martinez is a 38 year old now POD#6 s/p primary section at 37 weeks for pre-eclampsia and transverse presentation at [facility]. She was admitted on 06/22 evening with severe range blood pressures and is now status post 24 hours of IV Mag Sulfate for seizures prophylaxis. Her current regimen is Labetalol 600mg TID and Procardia 30mg XL qDay. She was well controlled over the past 24 hours except an elevated BP this morning 159/101. She needs adidtional coverage overnight, will discharge home with Procardia 30mg BID. She has a scheduled follow up appointment on with her delivering OBGYN office. She is asymptomatic this morning, denies headache, RUQ pain, visual disturbances. We will watch blood pressures throughout the afternoon prior to discharge. Assessment: 38 year old now POD#6 s/p primary who now has pre-E with severe features Patient Condition at Discharge: Good Plan - Discharge Summary New Discharge Prescriptions: New NIFEdipine XL [Procardia Xl] 30 mg PO BID #60 tab No Action Vit No.179/Iron/Folic [ Tablet] 1 each PO DAILY Labetalol [Trandate] 600 mg PO TID Ibuprofen 600 mg PO Q6H oxyCODONE HCL [OxyIR] 5 mg PO Q4H PRN PRN Reason: Pain methocarbamoL [Robaxin] 1,000 mg PO QID Docusate [Colace] 100 mg PO DAILY Acetaminophen Tab [Tylenol Tab] 1,000 mg PO Q6HR Discharge Medication List Vit No.179/Iron/Folic [ Tablet] 1 each PO DAILY 05/08/22 [History] Acetaminophen Tab [Tylenol Tab] 1,000 mg PO Q6HR 06/23/24 [History] Docusate [Colace] 100 mg PO DAILY 06/23/24 [History] Ibuprofen 600 mg PO Q6H 06/23/24 [History] Labetalol [Trandate] 600 mg PO TID 06/23/24 [History] methocarbamoL [Robaxin] 1,000 mg PO QID 06/23/24 [History] oxyCODONE HCL [OxyIR] 5 mg PO Q4H PRN 06/23/24 [History] NIFEdipine XL [Procardia Xl] 30 mg PO BID #60 tab 06/24/24 [Rx] Follow up Appointment(s)/Referral(s): None,Stated [Primary Care Provider] - 1-2 days Discharge Disposition: HOME SELF-CARE
[2024-06-24 12:44] VITALS: BP 140/93; PULSE 76; RESP 16; TEMP 97
== END 2024-06-24 15:30 | disposition home or self-care (01) ==
LOC: EC 00:03 → INTOOBSV 00:29 → 4FBP 00:29
PROVIDERS: ADMIT Obstetrics & Gynecology; ATTEND Obstetrics & Gynecology
DX: O14.15 Severe pre-eclampsia, complicating the puerperium (principal); O99.335 Smoking (tobacco) complicating the puerperium; Z79.899 Other long term (current) drug therapy; Z88.1 Allergy status to other antibiotic agents; Z88.0 Allergy status to penicillin; Z88.2 Allergy status to sulfonamides; Z98.891 History of uterine scar from previous surgery
CPT/HCPCS: 96366 ×2; 96361; 96365; 96375; 99285; 36415; 80053; 83615; 84550; 85025; 85610; 81001; G0378; J3475 ×2; S0197 ×2; J1920

== ENCOUNTER 2024-06-25 16:24 | Outpatient (CLI) | payer OTHER ==
--- NOTE | 2024-06-25 17:02 | P.HPOB ---
History of Present Illness H&P Date: 06/25/24 Chief Complaint: hypertension This is a 38-year-old 12 para 5-0-7-5 status post primary for preeclampsia and transverse presentation on June 18. Patient states she was discharged home on 600 mg of labetalol to be taken 3 times daily. Patient presented to [facility] with complaints of elevated blood pressures at home and was admitted on June 22 for 24 hours of magnesium GTT for seizure prophylaxis. Patient underwent preeclampsia labs which were normal, Procardia 30 mg twice daily was added for blood pressure control. Patient was discharged home on June 24. Patient represents today with complaints of elevated blood pressures at home. She states she had an episode of dizziness at home and blood pressure was noted to be 160s over 100. Patient denies any signs and symptoms of preeclampsia. 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, term 1 primary , 37 weeks 7 spontaneous AB's Review of Systems Constitutional: Denies chills, Denies fatigue, Denies fever Ears, nose, mouth and throat: Denies headache Cardiovascular: Reports leg edema Respiratory: Denies dyspnea Gastrointestinal: Denies nausea, Denies vomiting Genitourinary: Denies Past Medical History Past Medical History: Fibromyalgia, Hypertension Additional Past Medical History / Comment(s): pree with this past History of Any Multi-Drug Resistant Organisms: None Reported Past Surgical History: Section, Tonsillectomy Additional Past Surgical History / Comment(s): D&C, 06/18/24 Past Anesthesia/Blood Transfusion Reactions: No Reported Reaction Past Psychological History: Anxiety, Depression, Panic Disorder Smoking Status: Current every day smoker Past Alcohol Use History: None Reported Past Drug Use History: Marijuana - Past Family History Mother Family Medical History: Cancer Additional Family Medical History / Comment(s): leukemia Father Family Medical History: Cancer Additional Family Medical History / Comment(s): esophogeal Brother(s) Family Medical History: Hypertension Medications and Allergies Home Medications Medication Instructions Recorded Confirmed Type Vit No.179/Iron/Folic 1 each PO DAILY 05/08/22 06/23/24 History [ Tablet] Acetaminophen Tab [Tylenol Tab] 1,000 mg PO Q6HR 06/23/24 06/23/24 History Docusate [Colace] 100 mg PO DAILY 06/23/24 06/23/24 History Ibuprofen 600 mg PO Q6H 06/23/24 06/23/24 History Labetalol [Trandate] 600 mg PO TID 06/23/24 06/23/24 History methocarbamoL [Robaxin] 1,000 mg PO QID 06/23/24 06/23/24 History oxyCODONE HCL [OxyIR] 5 mg PO Q4H PRN 06/23/24 06/23/24 History NIFEdipine XL [Procardia Xl] 30 mg PO BID #60 tab 06/24/24 Rx Allergies Allergy/AdvReac Type Severity Reaction Status Date / Time amoxicillin Allergy Rash/Hives Verified 06/25/24 16:38 cefaclor [From Ceclor] Allergy Rash/Hives Verified 06/25/24 16:38 clindamycin Allergy Nausea & Verified 06/25/24 16:38 Vomiting/Dizziness erythromycin base Allergy Nausea & Verified 06/25/24 16:38 Vomiting/Dizziness penicillinase Allergy Rash/Hives Verified 06/25/24 16:38 Penicillins Allergy Rash/Hives Verified 06/25/24 16:38 Sulfa (Sulfonamide Allergy Rash/Hives Verified 06/25/24 16:38 Antibiotics) Exam Osteopathic Statement: *. No significant issues noted on an osteopathic structural exam other than those noted in the History and Physical/Consult. Intake and Output 06/25/24 06/25/24 06/25/24 06:59 14:59 22:59 Other: Weight 107.7 kg Targeted exam is performed this date in general this is a 38-year-old female in no acute distress, breathing appears nonlabored She is currently having blood drawn for labs, unable to perform abdominal exam Assessment and Plan (1) hypertension Current Visit: Yes Status: Acute Code(s): O16.5 - UNSPECIFIED MATERNAL HYPERTENSION, COMP THE PUERPERIUM SNOMED Code(s): 73195376 (2) Status post primary low transverse section Current Visit: Yes Status: Acute Code(s): Z98.891 - HISTORY OF UTERINE SCAR FROM PREVIOUS SURGERY SNOMED Code(s): 060817870 Plan: 38-year-old 12 para 5-0-7-5 status post primary in June 18. Patient states she was diagnosed with preeclampsia therefore was done at 37 weeks secondary to preeclampsia and transverse presentation. Patient was seen here at [facility] from the to the she received magnesium GTT for 24 hours, continuation of her home dose of labetalol 600 mg 3 times daily and Procardia 30 mg twice daily was added. Blood pressures were controlled prior to discharge. Patient re-presents with elevated blood pressures. Blood pressures here 181/104, 160's/80's. Patient is without signs and symptoms of preeclampsia. Will consult sound physicians for further hypertension management.
[2024-06-25 17:10] LABS: Basophils # (A) 0.1 k/uL (0-0.2); Basophils % (A) 1 %; Eosinophils # (A) 0.3 k/uL (0-0.7); Eosinophils % (A) 2 %; HCT 32.6 % (34.0-46.0); HGB 10.7 gm/dL (11.4-16.0); Lymphocytes # (A) 3.4 k/uL (1.0-4.8); Lymphocytes % (A) 26 %; MCH 30.1 pg (25.0-35.0); MCV 91.3 fL (80.0-100.0); Mean Platelet Volume 6.6; Monocytes # (A) 0.6 k/uL (0-1.0); Monocytes % (A) 5 %; Neutrophils # (A) 8.6 k/uL (1.3-7.7); Neutrophils % (A) 65 %; Platelet Count 649 k/uL (150-450); RBC 3.57 m/uL (3.80-5.40); RDW 14.2 % (11.5-15.5); WBC 13.2 k/uL (3.8-10.6)
[2024-06-25 17:47] LABS: Uric Acid 5.9 mg/dL (3.7-7.4)
[2024-06-25 17:51] LABS: ALT 27 U/L (4-34); African American GFR (CKD) >90 (>60 ml/min/1.73 sqM); Albumin 3.8 g/dL (3.5-5.0); Anion Gap 8 mmol/L; Blood Urea Nitrogen 17 mg/dL (7-17); Calcium 9.3 mg/dL (8.4-10.2); Carbon Dioxide 20 mmol/L (22-30); Chloride 108 mmol/L (98-107); Glucose 85 mg/dL (74-99); Non-African American GFR(CKD) >90 (>60 ml/min/1.73 sqM); Sodium 136 mmol/L (137-145); Total Bilirubin 0.5 mg/dL (0.2-1.3); Total Protein 6.6 g/dL (6.3-8.2)
[2024-06-25] MEDS ORDERED: ACETAMINOPHEN TAB 500 MG TAB PO PRN (17:52)
[2024-06-25 17:54] LABS: AST 37 U/L (14-36); Alkaline Phosphatase 96 U/L (38-126); Potassium 5.4 mmol/L (3.5-5.1)
[2024-06-25] MEDS ORDERED: NIFEdipine XL 30 MG TAB.ER.24 PO SCH (18:00)
[2024-06-25] MEDS ORDERED: LABETALOL 200 MG TAB PO SCH (18:00)
[2024-06-25] MEDS ORDERED: hydrALAZINE HCL 10 MG TAB PO PRN (18:01)
[2024-06-25] MEDS: IBUPROFEN 800 MG TAB PO PRN (18:10)
--- NOTE | 2024-06-25 18:20 | P.CONS ---
History of Present Illness - Reason for Consult Consult date: 06/25/24 - History of Present Illness Patient is a 38-year-old female 8 days status post primary for preeclampsia and midtransverse presentation on June 18 is being seen for elevated blood pressure. She presented 4 days ago for elevated blood pressures and was admitted on June 22 and was given magnesium gtt. for seizure prophylaxis. Blood pressure was controlled and she was later discharged on June 24. She has been taking labetalol 600 mg p.o. 3 times daily and Procardia 30 mg twice daily as a home regiment. Today she reports that the dizziness and have an elevated blood pressure of 193/119 at home. She was never previously diagnosed with hypertension. Patient denies any current dizziness, nausea, vomiting, syncope, vision changes. She admits to mild headache. Pertinent positives and negatives as discussed above, a complete review of systems was performed and all other systems are negative. Vitals: Signs Reviewed Physical Exam: General: nontoxic, no distress, appears at stated age, obese Derm: warm, dry, intact Head: atraumatic, normocephalic, symmetric Eyes: EOMI, anicteric sclera Mouth: no lip lesion, mucus membranes moist Cardiovascular: S1 S2 reg, no murmur, rubs, or gallops Lungs: CTA bilateral, no rhonchi, no rales, no accessory muscle use Abdominal: soft, non-tender to palpataion, no appreciable organomegaly Extremities: no gross muscle atrophy, no edema, no contractures Neuro: Alert, Oriented, CNII-XII grossly intact, gait normal Psych: well appearing, appropriate affect Data Received Today: Pertinent Labs: WBC 13.2, Hgb 10.7, platelet 649, sodium 136, potassium 5.4 (slight hemolysis), CO2 20, BUN 17, creatinine 0.72, LDH 225 Imaging: N/A Assessment and Plan: #. hypertension Nifedipine 60 mg PO daily Labetalol 600 mg PO TID Hydralazine 20 mg PO QID PRN if SBP > 180 and/or DBP > 100 TSH ordered Urinalysis ordered Will continue to monitor any worsening symptoms Code status: Full code Thank you for this consultation. Please do not hesitate to ask any further questions. Heladio Dueñas MD PGY-1 IM Dictation was produced using [employer]ation software. please excuse any grammatical, word or spelling errors. Patient was seen and examined by me. I agree with the subjective and objective of the above note. We discussed the assessment and plan in detail as below. hypertension Obtain UA to rule out pre-eclampsia. TSH within normal limits. Restart Labetalol 600 mg PO TID (max dose 2400 mg/day). Increase Nifedipine to 60 mg PO BID. Can switch to 120 mg PO QD in the AM. Hydralazine 20 mg PO TID PRN SBP > 180 or DBP > 120. Monitor BP Q2H. Low salt diet. Leukocytosis: Likely reactive. Monitor fever profile. Repeat CBC in the AM. Hyperkalemia: Hemolyzed potassium. Repeat BMP in the AM. Thrombocytosis and Normocytic anemia: Likely iron deficiency? Repeat CBC in the AM. Past Medical History Past Medical History: Fibromyalgia, Hypertension Additional Past Medical History / Comment(s): pree with this past History of Any Multi-Drug Resistant Organisms: None Reported Past Surgical History: Section, Tonsillectomy Additional Past Surgical History / Comment(s): D&C, 06/18/24 Past Anesthesia/Blood Transfusion Reactions: No Reported Reaction Past Psychological History: Anxiety, Depression, Panic Disorder Smoking Status: Current every day smoker Past Alcohol Use History: None Reported Past Drug Use History: Marijuana - Past Family History Mother Family Medical History: Cancer Additional Family Medical History / Comment(s): leukemia Father Family Medical History: Cancer Additional Family Medical History / Comment(s): esophogeal Brother(s) Family Medical History: Hypertension Medications and Allergies Home Medications Medication Instructions Recorded Confirmed Type Vit No.179/Iron/Folic 1 each PO DAILY 05/08/22 06/23/24 History [ Tablet] Acetaminophen Tab [Tylenol Tab] 1,000 mg PO Q6HR 06/23/24 06/23/24 History Docusate [Colace] 100 mg PO DAILY 06/23/24 06/23/24 History Ibuprofen 600 mg PO Q6H 06/23/24 06/23/24 History Labetalol [Trandate] 600 mg PO TID 06/23/24 06/23/24 History methocarbamoL [Robaxin] 1,000 mg PO QID 06/23/24 06/23/24 History oxyCODONE HCL [OxyIR] 5 mg PO Q4H PRN 06/23/24 06/23/24 History NIFEdipine XL [Procardia Xl] 30 mg PO BID #60 tab 06/24/24 Rx Allergies Allergy/AdvReac Type Severity Reaction Status Date / Time amoxicillin Allergy Rash/Hives Verified 06/25/24 16:38 cefaclor [From Ceclor] Allergy Rash/Hives Verified 06/25/24 16:38 clindamycin Allergy Nausea & Verified 06/25/24 16:38 Vomiting/Dizziness erythromycin base Allergy Nausea & Verified 06/25/24 16:38 Vomiting/Dizziness penicillinase Allergy Rash/Hives Verified 06/25/24 16:38 Penicillins Allergy Rash/Hives Verified 06/25/24 16:38 Sulfa (Sulfonamide Allergy Rash/Hives Verified 06/25/24 16:38 Antibiotics) Physical Exam Vitals: Intake and Output 06/25/24 06/25/24 06/25/24 06:59 14:59 22:59 Other: Weight 107.7 kg Results CBC & Chem 7: 06/25/24 17:00 06/25/24 17:00 Labs: Abnormal Lab Results - Last 24 Hours (Table) 06/25/24 Range/Units 17:00 WBC 13.2 H (3.8-10.6) k/uL RBC 3.57 L (3.80-5.40) m/uL Hgb 10.7 L (11.4-16.0) gm/dL Hct 32.6 L (34.0-46.0) % Plt Count 649 H (150-450) k/uL Neutrophils # 8.6 H (1.3-7.7) k/uL
[2024-06-25] MEDS ORDERED: NALOXONE 0.4 MG/ML 1 ML VIAL IV PRN (18:58)
[2024-06-25] MEDS ORDERED: ONDANSETRON 4 MG/2 ML VIAL IVP PRN (18:58)
[2024-06-25] MEDS ORDERED: MELATONIN 3 MG TABLET PO PRN (18:58)
[2024-06-25] MEDS: hydrALAZINE HCL 10 MG TAB PO PRN (19:20)
[2024-06-25 19:46] LABS: Appearance,Urine Clear (Clear); Bilirubin,Urine Negative (Negative); Blood,Urine Large (Negative); Color,Urine Colorless; Glucose,Urine (UA) Negative (Negative); Ketones,Urine Negative (Negative); Leukocyte Esterase,Urine Moderate (Negative); Mucus,Urine Rare /hpf; Nitrite,Urine Negative (Negative); PH, Urine 6.5 (5.0-8.0); Protein,Urine Trace (Negative); RBC,Urine 97 /hpf (0-5); Specific Gravity,Urine 1.005 (1.001-1.035); Squamous Epithelial Cell,Urine 2 /hpf (0-4); Urobilinogen,Urine <2.0 mg/dL (<2.0); WBC,Urine 33 /hpf (0-5)
[2024-06-25] MEDS: NIFEdipine XL 30 MG TAB.ER.24 PO SCH (21:18)
[2024-06-25] MEDS: LABETALOL 200 MG TAB PO SCH (22:08)
[2024-06-25] MEDS: ACETAMINOPHEN TAB 325 MG TAB PO PRN (23:25)
[2024-06-26 06:53] LABS: Basophils # (A) 0.1 k/uL (0-0.2); Basophils % (A) 1 %; Eosinophils # (A) 0.2 k/uL (0-0.7); Eosinophils % (A) 2 %; HCT 36.2 % (34.0-46.0); HGB 11.8 gm/dL (11.4-16.0); Hypochromasia Slight; Lymphocytes # (A) 3.1 k/uL (1.0-4.8); Lymphocytes % (A) 24 %; MCH 30.3 pg (25.0-35.0); MCHC 32.7 g/dL (31.0-37.0); MCV 92.6 fL (80.0-100.0); Mean Platelet Volume 6.4; Monocytes # (A) 0.6 k/uL (0-1.0); Monocytes % (A) 5 %; Neutrophils # (A) 8.7 k/uL (1.3-7.7); Neutrophils % (A) 67 %; Platelet Count 630 k/uL (150-450); RBC 3.91 m/uL (3.80-5.40); RDW 14.2 % (11.5-15.5); WBC 12.9 k/uL (3.8-10.6)
[2024-06-26 07:02] LABS: African American GFR (CKD) >90 (>60 ml/min/1.73 sqM); Anion Gap 11 mmol/L; Blood Urea Nitrogen 14 mg/dL (7-17); Carbon Dioxide 19 mmol/L (22-30); Chloride 108 mmol/L (98-107); Glucose 83 mg/dL (74-99); Non-African American GFR(CKD) >90 (>60 ml/min/1.73 sqM); Potassium 4.6 mmol/L (3.5-5.1); Sodium 138 mmol/L (137-145)
[2024-06-26 08:27] VITALS: RESP 16
--- NOTE | 2024-06-26 09:27 | P.CONS ---
History of Present Illness - Reason for Consult Consult date: 06/26/24 wound vac - History of Present Illness This is a 38-year-old patient being seen on labor and delivery for evaluation of a wound VAC. Patient is 8 days. She had a on June 18 the incision was closed with shade and a sawyer incisional wound VAC was applied. Patient was scheduled to have the wound VAC removed on the however she was hospitalized she then had an appointment on the however she remains hospitalized. The sawyer was removed. The incisional line is well- approximated shade are intact. Site is clean and dry no erythema or drainage noted. Review Of Systems: Constitutional: No fever, no chills, no night sweats. No weight change. No weakness, fatigue or lethargy. No daytime sleepiness. Integumentary:reports wounds, no lesions. No rash or pruritus. No unusual bruising. No change in hair or nails. Physical exam: General Appearance: Alert, cooperative, no distress, appears stated age. Skin: See HPI all other Skin color, texture, tugor normal, no rashes or lesions. Neurologic: Alert oriented x3 Assessment: 1.Disruption of delivery wound 2. Hypertension 3. Preeclampsia Plan: 1. Sawyer device removed. Shade are intact. Follow-up with OB for removal. Thank you for the consultation any questions please contact the wound care center DNP note has been reviewed and discussed with Dr. Albarado and the impression and plan of care has been directed as dictated. Past Medical History Past Medical History: Fibromyalgia, Hypertension Additional Past Medical History / Comment(s): pree with this past History of Any Multi-Drug Resistant Organisms: None Reported Past Surgical History: Section, Tonsillectomy Additional Past Surgical History / Comment(s): D&C, 06/18/24 Past Anesthesia/Blood Transfusion Reactions: No Reported Reaction Past Psychological History: Anxiety, Depression, Panic Disorder Smoking Status: Current every day smoker Past Alcohol Use History: None Reported Past Drug Use History: Marijuana - Past Family History Mother Family Medical History: Cancer Additional Family Medical History / Comment(s): leukemia Father Family Medical History: Cancer Additional Family Medical History / Comment(s): esophogeal Brother(s) Family Medical History: Hypertension Medications and Allergies Home Medications Medication Instructions Recorded Confirmed Type Vit No.179/Iron/Folic 1 each PO DAILY 05/08/22 06/23/24 History [ Tablet] Acetaminophen Tab [Tylenol Tab] 1,000 mg PO Q6HR 06/23/24 06/23/24 History Docusate [Colace] 100 mg PO DAILY 06/23/24 06/23/24 History Ibuprofen 600 mg PO Q6H 06/23/24 06/23/24 History Labetalol [Trandate] 600 mg PO TID 06/23/24 06/23/24 History methocarbamoL [Robaxin] 1,000 mg PO QID 06/23/24 06/23/24 History oxyCODONE HCL [OxyIR] 5 mg PO Q4H PRN 06/23/24 06/23/24 History NIFEdipine XL [Procardia Xl] 30 mg PO BID #60 tab 06/24/24 Rx Allergies Allergy/AdvReac Type Severity Reaction Status Date / Time amoxicillin Allergy Rash/Hives Verified 06/25/24 16:38 cefaclor [From Ceclor] Allergy Rash/Hives Verified 06/25/24 16:38 clindamycin Allergy Nausea & Verified 06/25/24 16:38 Vomiting/Dizziness erythromycin base Allergy Nausea & Verified 06/25/24 16:38 Vomiting/Dizziness penicillinase Allergy Rash/Hives Verified 06/25/24 16:38 Penicillins Allergy Rash/Hives Verified 06/25/24 16:38 Sulfa (Sulfonamide Allergy Rash/Hives Verified 06/25/24 16:38 Antibiotics) Physical Exam Vitals: Vital Signs Temp Pulse Resp BP Pulse Ox 06/26/24 08:00 98.8 F 87 16 144/76 95 06/26/24 06:00 80 18 160/88 06/26/24 04:00 84 18 161/86 94 L 06/26/24 02:15 189/99 06/26/24 00:00 166/94 06/25/24 22:00 96.9 F L 70 18 194/95 06/25/24 21:17 73 174/92 06/25/24 20:00 98.3 F 74 18 182/92 97 06/25/24 18:28 180/93 06/25/24 17:25 179/130 06/25/24 17:00 171/99 06/25/24 16:50 167/87 06/25/24 16:40 165/83 06/25/24 16:30 98.2 F 75 16 181/104 Intake and Output 06/25/24 06/26/24 06/26/24 22:59 06:59 14:59 Other: # Voids 3 2 Weight 107.7 kg Results CBC & Chem 7: 06/26/24 06:27 06/26/24 06:27 Labs: Abnormal Lab Results - Last 24 Hours (Table) 06/25/24 06/25/24 06/25/24 Range/Units 17:00 17:00 19:20 WBC 13.2 H (3.8-10.6) k/uL RBC 3.57 L (3.80-5.40) m/uL Hgb 10.7 L (11.4-16.0) gm/dL Hct 32.6 L (34.0-46.0) % Plt Count 649 H (150-450) k/uL Neutrophils # 8.6 H (1.3-7.7) k/uL Sodium 136 L (137-145) mmol/L Potassium 5.4 H (3.5-5.1) mmol/L Chloride 108 H (98-107) mmol/L Carbon Dioxide 20 L (22-30) mmol/L AST 37 H (14-36) U/L Urine Protein Trace H (Negative) Urine Blood Large H (Negative) Ur Leukocyte Esterase Moderate H (Negative) Urine RBC 97 H (0-5) /hpf Urine WBC 33 H (0-5) /hpf Urine Mucus Rare H (None) /hpf 06/26/24 06/26/24 Range/Units 06:27 06:27 WBC 12.9 H (3.8-10.6) k/uL RBC (3.80-5.40) m/uL Hgb (11.4-16.0) gm/dL Hct (34.0-46.0) % Plt Count 630 H (150-450) k/uL Neutrophils # 8.7 H (1.3-7.7) k/uL Sodium (137-145) mmol/L Potassium (3.5-5.1) mmol/L Chloride 108 H (98-107) mmol/L Carbon Dioxide 19 L (22-30) mmol/L AST (14-36) U/L Urine Protein (Negative) Urine Blood (Negative) Ur Leukocyte Esterase (Negative) Urine RBC (0-5) /hpf Urine WBC (0-5) /hpf Urine Mucus (None) /hpf Assessment and Plan (1) Disruption of delivery wound Current Visit: Yes Status: Acute Code(s): O90.0 - DISRUPTION OF DELIVERY WOUND SNOMED Code(s): 510377156 (2) hypertension Current Visit: Yes Status: Acute Code(s): O16.5 - UNSPECIFIED MATERNAL HYPERTENSION, COMP THE PUERPERIUM SNOMED Code(s): 57842747 (3) Pre-eclampsia Current Visit: No Status: Acute Code(s): O14.90 - UNSPECIFIED PRE-ECLAMPSIA, UNSPECIFIED TRIMESTER SNOMED Code(s): 568171940
--- NOTE | 2024-06-26 17:37 | P.PN ---
Subjective Progress Note Date: 06/26/24 Subjective: Patient seen and evaluated at bedside. Was given 20 mg of IV hydralazine 2 times last night. She has no acute complaints. Denies any headache, dizziness, vision changes. She states she wants to have her heart medications change. Pertinent positives and negatives as discussed above, a complete review of systems was performed and all other systems are negative. Vitals: Signs Reviewed Physical Exam: General: nontoxic, no distress, appears at stated age Derm: warm, dry, intact Head: atraumatic, normocephalic, symmetric Eyes: EOMI, anicteric sclera Mouth: no lip lesion, mucus membranes moist Cardiovascular: S1 S2 reg, no murmur, rubs, or gallops Lungs: CTA bilateral, no rhonchi, no rales, no accessory muscle use Abdominal: soft, non-tender to palpataion, no appreciable organomegaly Extremities: no gross muscle atrophy, no edema, no contractures Neuro: Alert, Oriented, CNII-XII grossly intact, gait normal Psych: well appearing, appropriate affect Assessment and Plan: #. hypertension Continue with nifedipine 60 mg PO daily Labetalol 600 mg PO TID decreased to 300 mg PO BID Captopril 25 mg p.o. twice daily Hydralazine 25 mg p.o. twice daily TSH within normal limit Urinalysis ordered Low-salt diet Monitor BP every 2 hours UA with trace protein - Patient is medically stable for discharge with PCP follow up - counseled on importance of ambulatory BP monitoring - On discharge please refer to PCP @ either Family Medicine or [facility], first available appointment #. Asymptomatic bacteriuria Urinalysis positive for UTI however patient keeps his active denies dysuria, urinary freq #. Leukocytosis Likely reactive Monitor for fever Repeat CBC in the morning #. Thrombocytosis Repeat CBC in the morning Thank you for this consultation. Please do not hesitate to ask any further questions. Heladio Dueñas MD PGY-1 IM Dictation was produced using [employer] dictation software. please excuse any grammatical, word or spelling errors. I saw and evaluated the patient during the harris and critical portions of this encounter, and discussed the case in detail with the resident author of this note, I agree with the Assessment and Plan, and my changes, if any, are highlighted in blue. Objective - Vital Signs Vital signs: Vital Signs Temp 98.3 F 06/26/24 16:00 Pulse 79 06/26/24 16:00 Resp 16 06/26/24 16:00 BP 150/92 06/26/24 16:00 Pulse Ox 97 06/26/24 16:00 FiO2 Intake & Output 06/25/24 06/26/24 06/26/24 18:59 06:59 18:59 Weight 107.7 kg Other: # Voids 2 2 - Labs CBC & Chem 7: 06/26/24 06:27 06/26/24 06:27 Labs: Abnormal Lab Results - Last 24 Hours (Table) 06/25/24 06/25/24 06/26/24 Range/Units 17:00 19:20 06:27 WBC 12.9 H (3.8-10.6) k/uL Plt Count 630 H (150-450) k/uL Neutrophils # 8.7 H (1.3-7.7) k/uL Sodium 136 L (137-145) mmol/L Potassium 5.4 H (3.5-5.1) mmol/L Chloride 108 H (98-107) mmol/L Carbon Dioxide 20 L (22-30) mmol/L AST 37 H (14-36) U/L Urine Protein Trace H (Negative) Urine Blood Large H (Negative) Ur Leukocyte Esterase Moderate H (Negative) Urine RBC 97 H (0-5) /hpf Urine WBC 33 H (0-5) /hpf Urine Mucus Rare H (None) /hpf 06/26/24 Range/Units 06:27 WBC (3.8-10.6) k/uL Plt Count (150-450) k/uL Neutrophils # (1.3-7.7) k/uL Sodium (137-145) mmol/L Potassium (3.5-5.1) mmol/L Chloride 108 H (98-107) mmol/L Carbon Dioxide 19 L (22-30) mmol/L AST (14-36) U/L Urine Protein (Negative) Urine Blood (Negative) Ur Leukocyte Esterase (Negative) Urine RBC (0-5) /hpf Urine WBC (0-5) /hpf Urine Mucus (None) /hpf
[2024-06-26] MEDS: hydrALAZINE HCL 25 MG TAB PO SCH (20:11)
[2024-06-26] MEDS: LABETALOL 100 MG TAB PO SCH (20:11)
[2024-06-26] MEDS ORDERED: LABETALOL 200 MG TAB PO SCH (21:00)
[2024-06-27 07:59] VITALS: BP 139/90; PULSE 82; TEMP 97.8
--- NOTE | 2024-06-27 08:34 | P.DS ---
Providers Date of admission: 06/25/24 16:50 Expected date of discharge: 06/27/24 Attending physician: Lucy Minaya Consults: 06/25/24 16:40 Consult Physician Urgent Consulting Provider: Winter Ceja Consult Reason/Comments: HTN Do you want consulting provider notified?: Yes Primary care physician: Stated None - Discharge Diagnosis(es) (1) hypertension Current Visit: Yes Status: Acute (2) Status post primary low transverse section Current Visit: Yes Status: Acute Hospital Course: 38 yo status post primary on June 18 for preeclampsia at an outside facility. Patient presented to our facility on 06/22 with elevated blood pressures and was placed on magnesium GTT for seizure prophylaxis. Patient was on 600 mg of labetalol 3 times a day upon admission, Procardia 30 mg twice daily was added and blood pressures were well-controlled patient was discharged on 06/24. Patient represented on 06/25 with elevated blood pressures and concerns with dizziness. Patient was readmitted and medicine was consulted. For full details in this patient please see the dictated history and physical. Patient had her medications readjusted with internal medicine, labetalol 600 mg 3 times daily, 60 mg of Procardia twice a daily with as needed hydralazine. Patient's blood pressures are well-controlled 130s to 140s over 90s. She states she is feeling much improved. No obstetric/ concerns during this visit. Patient did have a wound VAC placed by her prior accredited farm manager at the time of section, wound RN was consulted wound VAC was removed and shade remain in place. Patient states lochia is minimal to moderate. She denies surgical pain. She is ambulating and voiding without difficulty. She is tolerating a regular diet without nausea or vomiting. Patient Condition at Discharge: Good Plan - Discharge Summary New Discharge Prescriptions: No Action Vit No.179/Iron/Folic [ Tablet] 1 each PO DAILY Labetalol [Trandate] 600 mg PO TID Ibuprofen 600 mg PO Q6H oxyCODONE HCL [OxyIR] 5 mg PO Q4H PRN PRN Reason: Pain methocarbamoL [Robaxin] 1,000 mg PO QID Docusate [Colace] 100 mg PO DAILY Acetaminophen Tab [Tylenol Tab] 1,000 mg PO Q6HR NIFEdipine XL [Procardia Xl] 30 mg PO BID #60 tab Discharge Medication List Vit No.179/Iron/Folic [ Tablet] 1 each PO DAILY 05/08/22 [History] Acetaminophen Tab [Tylenol Tab] 1,000 mg PO Q6HR 06/23/24 [History] Docusate [Colace] 100 mg PO DAILY 06/23/24 [History] Ibuprofen 600 mg PO Q6H 06/23/24 [History] Labetalol [Trandate] 600 mg PO TID 06/23/24 [History] methocarbamoL [Robaxin] 1,000 mg PO QID 06/23/24 [History] oxyCODONE HCL [OxyIR] 5 mg PO Q4H PRN 06/23/24 [History] NIFEdipine XL [Procardia Xl] 30 mg PO BID #60 tab 06/24/24 [Rx] Activity/Diet/Wound Care/Special Instructions: Patient is to follow-up with internal medicine clinic per recommendations, medications will be prescribed per internal medicine, she is encouraged to follow-up with her accredited farm manager for routine check and staple removal. Discharge Disposition: HOME SELF-CARE
--- NOTE | 2024-06-27 09:03 | P.PN ---
Subjective Progress Note Date: 06/27/24 This is a 38-year-old 12 para 5-0-7-5 status post primary for preeclampsia and transverse presentation on June 18. Patient states she was discharged home on 600 mg of labetalol to be taken 3 times daily. Patient presented to [facility] with complaints of elevated blood pressures at home and was admitted on June 22 for 24 hours of magnesium GTT for seizure prophylaxis. Patient underwent preeclampsia labs which were normal, Procardia 30 mg twice daily was added for blood pressure control. Patient was discharged home on June 24. Patient represents today with complaints of elevated blood pressures at home. She states she had an episode of dizziness at home and blood pressure was noted to be 160s over 100. Patient denies any signs and symptoms of preeclampsia. [employer] history 12 para 5-0-7-5 4 prior spontaneous vaginal deliveries, term 1 primary , 37 weeks 7 spontaneous AB's 06/27. Patient seen laying comfortably in bed. No acute events overnight. No significant complaints today. No new labs or images today. Objective - Vital Signs Vital signs: Vital Signs Temp 97.8 F 06/27/24 07:59 Pulse 82 06/27/24 07:59 Resp 16 06/27/24 07:59 BP 139/90 06/27/24 07:59 Pulse Ox 97 06/26/24 16:00 FiO2 Intake & Output 06/26/24 06/27/24 06/27/24 18:59 06:59 18:59 Other: # Voids 2 1 - Constitutional General appearance: Present: no acute distress - Respiratory Respiratory: bilateral: CTA - Cardiovascular Rhythm: regular Heart sounds: normal: S1, S2 - Gastrointestinal Gastrointestinal Comment(s): Well-healing low transverse Caesarean section - Labs CBC & Chem 7: 06/26/24 06:27 06/26/24 06:27 Assessment and Plan Assessment: 1. hypertension 2. Status post low transverse Caesarean section Plan: 38-year-old 12 para 5-0-7-5 status post primary in June 18. Patient states she was diagnosed with preeclampsia therefore was done at 37 weeks secondary to preeclampsia and transverse presentation. Patient was seen here at [facility] from the to the she received magnesium GTT for 24 hours, continuation of her home dose of labetalol 600 mg 3 times daily and Procardia 30 mg twice daily was added. Blood pressures were controlled prior to discharge. Patient re-presents with elevated blood pressures. Blood pressure medications as per internal medicine. Patient should followup with PCP outpatient-FM/IM resident clinic information provided. Patient should followup with her chair finisher for routine management and staple removal.
--- NOTE | 2024-06-27 12:45 | P.PN ---
Subjective Progress Note Date: 06/27/24 Subjective: Patient seen and evaluated at bedside. Was given 20 mg of IV hydralazine 2 times last night. She has no acute complaints. Denies any headache, dizziness, vision changes. She states she wants to have her heart medications change. 06/27/2024: Patient seen evaluated bedside. No acute events overnight. No acute complaints. Denies any headache, dizziness, visual changes. Pertinent positives and negatives as discussed above, a complete review of systems was performed and all other systems are negative. Vitals: Signs Reviewed Physical Exam: General: nontoxic, no distress, appears at stated age Derm: warm, dry, intact Head: atraumatic, normocephalic, symmetric Eyes: EOMI, anicteric sclera Mouth: no lip lesion, mucus membranes moist Cardiovascular: S1 S2 reg, no murmur, rubs, or gallops Lungs: CTA bilateral, no rhonchi, no rales, no accessory muscle use Abdominal: soft, non-tender to palpataion, no appreciable organomegaly Extremities: no gross muscle atrophy, no edema, no contractures Neuro: Alert, Oriented, CNII-XII grossly intact, gait normal Psych: well appearing, appropriate affect Assessment and Plan: #. hypertension Continue with nifedipine 60 mg PO daily Labetalol 600 mg PO TID decreased to 300 mg PO BID Lisinopril 10 mg daily Hydralazine 25 mg p.o. twice daily TSH within normal limit Urinalysis ordered Low-salt diet Monitor BP every 2 hours UA with trace protein - Patient is medically stable for discharge with PCP follow up - counseled on importance of ambulatory BP monitoring - On discharge please refer to PCP @ either Family Medicine or Internal Medicine Residency Clinic, first available appointment #. Asymptomatic bacteriuria Urinalysis positive for UTI however patient keeps his active denies dysuria, urinary freq #. Leukocytosis Likely reactive Monitor for fever Repeat CBC in the morning #. Thrombocytosis Repeat CBC in the morning Thank you for this consultation. Please do not hesitate to ask any further qu estions. Heladio Dueñas MD PGY-1 IM Dictation was produced using [employer] dictation software. please excuse any grammatical, word or spelling errors. Patient was discharged before I was able to see her this morning. I have discussed with the resident and agree with the residents plan as documented in the resident's note. Changes highlighted in blue font. Objective - Vital Signs Vital signs: Vital Signs Temp 98.1 F 06/26/24 20:00 Pulse 87 06/27/24 06:00 Resp 16 06/27/24 06:00 BP 142/90 06/27/24 06:00 Pulse Ox 97 06/26/24 16:00 FiO2 Intake & Output 06/26/24 06/27/24 06/27/24 18:59 06:59 18:59 Other: # Voids 2 1 - Labs CBC & Chem 7: 06/26/24 06:27 06/26/24 06:27
== END 2024-06-27 10:45 | disposition home or self-care (01) ==
LOC: FBPOP 16:24 → 4FBP 16:38 → UNDOADMOB 16:49 → INTOOBSV 16:50 → OBSVTOIN 16:50 → UNDODISIN 06-27 10:45
PROVIDERS: ADMIT Obstetrics & Gynecology Obstetrics; ATTEND Obstetrics & Gynecology Obstetrics
DX: O13.5 Gestational [pregnancy-induced] hypertension without significant proteinuria, complicating the puerperium (principal); N39.0 Urinary tract infection, site not specified; D75.839 Thrombocytosis, unspecified; E87.5 Hyperkalemia; F32.A Depression, unspecified; F41.0 Panic disorder [episodic paroxysmal anxiety]; M79.7 Fibromyalgia; O23.43 Unspecified infection of urinary tract in pregnancy, third trimester; O32.2XX0 Maternal care for transverse and oblique lie, not applicable or unspecified; O90.0 Disruption of cesarean delivery wound; O99.12 Other diseases of the blood and blood-forming organs and certain disorders involving the immune mechanism complicating childbirth; O99.284 Endocrine, nutritional and metabolic diseases complicating childbirth; O99.334 Smoking (tobacco) complicating childbirth; O99.344 Other mental disorders complicating childbirth; Z37.0 Single live birth; Z3A.37 37 weeks gestation of pregnancy; Z79.899 Other long term (current) drug therapy; Z82.49 Family history of ischemic heart disease and other diseases of the circulatory system
CPT/HCPCS: 36415; 80053; 80048; 84443; 83615; 84450; 84460; 84550; 85025 ×2; 81001; G0378 ×3; G0463; 99215

== ENCOUNTER 2024-10-16 15:13 | Emergency (ER) | payer OTHER ==
[2024-10-16 15:23] VITALS: RESP 20
--- NOTE | 2024-10-16 15:45 | ED ---
Allergic Reaction HPI - General Source: patient, RN notes reviewed Mode of arrival: ambulatory Limitations: no limitations <Desire Middleton - Last Filed: 10/16/24 22:30> <Jacklyn West - Last Filed: 10/17/24 09:39> - General Chief complaint: Allergic Reaction Stated complaint: Allergic reaction Time Seen by Provider: 10/16/24 15:31 - History of Present Illness Initial Comments: Patient is a 39-year-old female who presented to the emergency department for flushing, tachycardia, shortness of breath, headache after taking nifedipine. She said that she took nifedipine around 1 PM and her symptoms began around 1:30 PM. This is the first time in over a month that she has taken the nifedipine. The symptoms began with flushing, tachycardia, mild difficulty breathing, and headache. She states that this headache is occipital and frontal and describes it as a "high blood pressure headache." She denies fever/chills, nausea/vomiting, abdominal pain, chest pain, edema, lightheadedness/dizziness, facial or tongue swelling, hives or other skin rashes. (Desire Middleton) - Related Data Home Medications Medication Instructions Recorded Confirmed Vit No.179/Iron/Folic 1 each PO DAILY 05/08/22 06/23/24 [ Tablet] Acetaminophen Tab [Tylenol Tab] 1,000 mg PO Q6HR 06/23/24 06/23/24 Docusate [Colace] 100 mg PO DAILY 06/23/24 06/23/24 Ibuprofen 600 mg PO Q6H 06/23/24 06/23/24 oxyCODONE HCL [OxyIR] 5 mg PO Q4H PRN 06/23/24 06/23/24 Previous Rx's Medication Instructions Recorded NIFEdipine XL [Procardia XL] 30 mg PO BID #60 tab 06/24/24 Labetalol [Trandate] 300 mg PO BID #90 tab 06/27/24 NIFEdipine XL [Procardia XL] 60 mg PO Q12HR #90 tab 06/27/24 captopriL [Capoten] 25 mg PO BID #90 tab 06/27/24 hydrALAZINE HCL [Apresoline] 25 mg PO BID #90 tab 06/27/24 Labetalol [Trandate] 300 mg PO BID #30 tablet 10/16/24 Allergies Allergy/AdvReac Type Severity Reaction Status Date / Time amoxicillin Allergy Rash/Hives Verified 06/25/24 16:38 cefaclor [From Ceclor] Allergy Rash/Hives Verified 06/25/24 16:38 clindamycin Allergy Nausea & Verified 06/25/24 16:38 Vomiting/Dizziness erythromycin base Allergy Nausea & Verified 06/25/24 16:38 Vomiting/Dizziness penicillinase Allergy Rash/Hives Verified 06/25/24 16:38 Penicillins Allergy Rash/Hives Verified 06/25/24 16:38 Sulfa (Sulfonamide Allergy Rash/Hives Verified 06/25/24 16:38 Antibiotics) Review of Systems ROS Other: All systems not noted in ROS Statement are negative. Constitutional: Denies: fever, chills Respiratory: Reports: cough (nonproductive) Cardiovascular: Reports: dyspnea on exertion. Denies: chest pain Gastrointestinal: Reports: diarrhea (Last few days). Denies: abdominal pain, nausea, vomiting, hematemesis, melena, hematochezia Genitourinary: Denies: dysuria, hematuria Neurological: Reports: headache (Pressure, occipital and frontal, steady ache) <Desire Middleton - Last Filed: 10/16/24 22:30> ROS Other: All systems not noted in ROS Statement are negative. <Jacklyn West - Last Filed: 10/17/24 09:39> ROS Statement: Those systems with pertinent positive or pertinent negative responses have been documented in the HPI. Past Medical History Past Medical History: Fibromyalgia, Hypertension Additional Past Medical History / Comment(s): pree with this past ,preeclampsia History of Any Multi-Drug Resistant Organisms: None Reported Past Surgical History: Section, Tonsillectomy Additional Past Surgical History / Comment(s): D&C, 06/18/24 Past Anesthesia/Blood Transfusion Reactions: No Reported Reaction Past Psychological History: Anxiety, Depression, Panic Disorder Smoking Status: Current every day smoker Past Alcohol Use History: None Reported Past Drug Use History: Marijuana - Past Family History Mother Family Medical History: Cancer Additional Family Medical History / Comment(s): leukemia Father Family Medical History: Cancer Additional Family Medical History / Comment(s): esophogeal Brother(s) Family Medical History: Hypertension <Desire Middleton - Last Filed: 10/16/24 22:30> General Exam Limitations: no limitations General appearance: alert Head exam: Present: atraumatic Eye exam: Present: normal appearance, EOMI ENT exam: Present: normal oropharynx, mucous membranes moist, normal external ear exam Neck exam: Present: normal inspection, full ROM Respiratory exam: Present: rhonchi (Occasional mild scattered). Absent: respiratory distress, wheezes, rales, stridor, accessory muscle use, decreased breath sounds Cardiovascular Exam: Present: normal rhythm, tachycardia, normal heart sounds. Absent: systolic murmur, diastolic murmur GI/Abdominal exam: Present: soft, normal bowel sounds. Absent: distended, tenderness Extremities exam: Present: normal inspection, full ROM. Absent: pedal edema Neurological exam: Present: alert, oriented X3, CN II-XII intact Psychiatric exam: Present: anxious Skin exam: Present: warm, dry, intact <Desire Middleton - Last Filed: 10/16/24 22:30> Course Vital Signs 10/16/24 10/16/24 15:19 17:03 Temperature 97.9 F 98.2 F Pulse Rate 124 H 92 Respiratory 20 20 Rate Blood Pressure 146/101 129/85 O2 Sat by Pulse 98 99 Oximetry Medical Decision Making <Desire Middleton - Last Filed: 10/16/24 22:30> <Jacklyn West - Last Filed: 10/17/24 09:39> - Medical Decision Making Was pt. sent in by a medical professional or institution (, PA, INDUSTRIAL SOCIOLOGIST, urgent care, hospital, or longterm...) When possible be specific @ -No Did you speak to anyone other than the patient for history (EMS, parent, family, police, friend...)? What history was obtained from this source @ -No Did you review nursing and triage notes (agree or disagree)? Why? @ -I reviewed and agree with nursing and triage notes Were old charts reviewed (outside hosp., previous admission, EMS record, old EKG, old radiological studies, urgent care reports/EKG's, longterm records)? Report findings @ -No old charts were reviewed Differential Diagnosis? @ -Differential Dyspnea: Coronary syndrome, arrhythmia, tamponade, asthma, COPD, pulmonary embolism, pneumonia, pneumothorax, pulmonary effusion, anaphylaxis, diabetic ketoacidosis, flailed chest, pulmonary contusion, diaphragmatic rupture, anemia, neuromuscular, this is not meant to be an all-inclusive list. EKG interpreted by me (3pts min.). @ -None done X-rays interpreted by me (1pt min.). @ -None done CT interpreted by me (1pt min.). @ -None done U/S interpreted by me (1pt. min.). @ -None done What testing was considered but not performed or refused? (CT, X-rays, U/S, labs)? Why? @ -None What meds were considered but not given or refused? Why? @ -None Did you discuss the management of the patient with other professionals (professionals i.e. , PA, INDUSTRIAL SOCIOLOGIST, lab, RT, psych nurse, social worker psychiatric, recreation director, teacher, forest officer, telehealth case manager)? Give summary @ -No Was smoking cessation discussed for >3mins.? @ -No Was critical care preformed (if so, how long)? @ -No Were there social determinants of health that impacted care today? How? (Homelessness, low income, unemployed, alcoholism, drug addiction, transportation, low edu. Level, literacy, decrease access to med. care, correction, rehab)? @ -No Was there de-escalation of care discussed even if they declined (Discuss DNR or withdrawal of care, Hospice)? DNR status @ -No What co-morbidities impacted this encounter? (DM, HTN, Smoking, COPD, CAD, Cancer, CVA, ARF, Chemo, Hep., AIDS, mental health diagnosis, sleep apnea, morbid obesity)? @ -HTN Was patient admitted / discharged? Hospital course, mention meds given and route, prescriptions, significant lab abnormalities, going to OR and other pertinent info. @ -Patient is a 39-year-old female with history of hypertension presenting for adverse reaction to nifedipine. She states that about 30 minutes after her dose she developed flushing, tachycardia, difficulty breathing, and headache. Recommended IV fluids and Benadryl, patient declined. She was discharged home with instructions to follow-up with PCP in 1 to 2 days. Return precautions discussed. Undiagnosed new problem with uncertain prognosis? @ -No Drug Therapy requiring intensive monitoring for toxicity (Heparin, Nitro, Insulin, Cardizem)? @ -No Were any procedures done? @ -No Diagnosis/symptom? @ -Adverse reaction to nifedipine Acute, or Chronic, or Acute on Chronic? @ -Acute Uncomplicated (without systemic symptoms) or Complicated (systemic symptoms)? @ -Uncomplicated Side effects of treatment? @ -No Exacerbation, Progression, or Severe Exacerbation? @ -No Poses a threat to life or bodily function? How? (Chest pain, [place], [place], pneumonia, PE, COPD, DKA, ARF, appy, cholecystitis, CVA, Diverticulitis, Homicidal, Suicidal, threat to staff... and all critical care pts) @ -No (Desire Middleton) I personally saw the patient and performed the critical portion of the service. I discussed the patient care with the resident physician. I directed management, care planning and final disposition of the patient. This includes, but not limited to, review of all lab work, radiological studies, EKG's, consultations, vital signs, and nursing notes. Critical care time of [0] minutes excluding separately billable procedures was spent in conjunction with critical care activities provided by the Resident and Attending simultaneously. I was present during [no procedures] for all critical portions of the procedure and as immediately available to furnish service during the entire procedure. (Jacklyn West) Disposition Is patient prescribed a controlled substance at d/c from ED?: No Time of Disposition: 16:38 <Desire Middleton - Last Filed: 10/16/24 22:30> <Jacklyn West - Last Filed: 10/17/24 09:39> Clinical Impression: Adverse effect of nifedipine Disposition: HOME SELF-CARE Condition: Good Instructions (If sedation given, give patient instructions): Adverse Drug Reaction (ED) Additional Instructions: Every disease is a spectrum and a small chance still exists that a serious condition could develop, for this reason, please monitor yourself closely for new, changing or worsening symptoms, facial or tongue swelling, rash or hives, symptoms that persist beyond 48 hours, fever, inability to tolerate/keep down fluids or your medications, inability to follow up with outpatient providers as instructed and should you experience these symptoms or should you have any further concerns for your wellbeing please return to the ED or call 911 immediately. Your pain can be treated with ibuprofen and acetaminophen. You can take up to 400-600 mg of ibuprofen (Advil, Motrin) 3 times daily (every 8 hours) but can also use lower doses if this relieves your pain. Some people prefer naproxen (Aleve, Naprosyn) which can be taken in doses of 500 mg up to twice a day. Do not take both of these medicines together, and do not combine either with ketorolac (Toradol), meloxicam (Mobic), or indomethacin (Tivorbex). Some people can develop stomach discomfort with higher doses of either ibuprofen or naproxen, if this develops decrease your dose or stop taking it. If you need to take this dose daily for more than a week, please schedule an appointment for re-evaluation with your PCP. Please take these medications with food. You can take up to 1000 mg of acetaminophen (Tylenol) every 6 hours. Be careful as this is included in some medicines like Nyquil, [place], Percocet, Vicodin, STANBACK, Goody's Powders, and Excedrin. You can also use lidocaine patches for topical pain. You can purchase 4% patches over the counter at most drug stores. These can be helpful for pain from your muscles or bones. PLEASE call your primary care physician as soon as possible to arrange / discuss plan for followup appointment. Appointment in the next 1-3 days is strongly encouraged if possible. PLEASE let us know here before you leave if there is anything further we can do to be of any assistance. Take care and feel Better! Prescriptions: Labetalol [Trandate] 300 mg PO BID #30 tablet Referrals: Desire Middleton MD [Emergency Provider] - 1-2 days
[2024-10-16 17:05] VITALS: BP 129/85; PULSE 92; TEMP 98.2
== END 2024-10-16 17:05 | disposition home or self-care (01) ==
LOC: EC 15:13
DX: T46.1X5A Adverse effect of calcium-channel blockers, initial encounter (principal); I10 Essential (primary) hypertension; F17.200 Nicotine dependence, unspecified, uncomplicated; Z88.2 Allergy status to sulfonamides; Z88.0 Allergy status to penicillin; Z88.1 Allergy status to other antibiotic agents; Z88.8 Allergy status to other drugs, medicaments and biological substances
CPT/HCPCS: 99283